=== PATIENT | female | born 1965 | race Caucasian/White ===

== ENCOUNTER 2018-07-31 10:20 | Inpatient (IN) | payer MEDICAID ==
[~2018-07-31] VITALS: Ht 165.1 cm; Wt 66.7 kg
--- NOTE | 2018-07-31 10:20 | NUR ---
Patient BIBA BLS, transferred to bed 6. RN evaluating patient at bedside.
--- NOTE | 2018-07-31 10:22 | NUR ---
Dr. Estrella evaluating patient at bedside.
[2018-07-31 10:23] VITALS: BP 169/93
--- NOTE | 2018-07-31 10:25 | NUR ---
53f biba from [facility] with c/o aloc x 3 days. Per report from friend, pt has been aloc for the past three days. Patient also was dx with bronchitits 3 wks ago. Skin is chapo to touch and pt is tachycardiac. Friend Patient obeys commands, spontaneous eye opening, incomprehible responsive to questions, and moving all extremities spontaneously. PERRLA. No facial/smile asymmetry noted. No head injury or trauma noted. RR are even and tachynpenic. Abd soft and non tender. No emesis noted or reported. NAD. ER md guadarrama made aware of patient's status. Will continue to monitor.
[2018-07-31] MEDS ORDERED: ORE25 PO (10:36)
[2018-07-31] MEDS ORDERED: TOP25 PO (10:36)
[2018-07-31] MEDS ORDERED: LISI-420 PO (10:36)
[2018-07-31] MEDS ORDERED: IBUP-1842 PO (10:36)
[2018-07-31] MEDS ORDERED: BEN50 PO (10:36)
[2018-07-31] MEDS ORDERED: NACL 0.9% 1,000 ML IV SCH (10:41)
[2018-07-31] MEDS ORDERED: cefTRIAXone 1,000 MG in DEXT 5% MINI-BAG PLUS 50 ML IV ONE (10:45)
[2018-07-31] MEDS ORDERED: LORazepam 2 MG/ML VIAL IVP ONE ×2 (10:55→12:50)
--- NOTE | 2018-07-31 11:15 | NUR ---
# 16 FR Urinary catheter inserted utilizing sterile technique. Immediate return of 20 ml yellow cloudy urine noted. Urine sample collected and sent to lab. Pt tolerated procedure well.
--- NOTE | 2018-07-31 11:28 | NUR ---
Patient taken to CT scan via gurney by [employer].
[2018-07-31 11:38] LABS: BASOPHILS % (AUTO) 0.1 % (0.0-2.0); EOSINOPHILS % (AUTO) 0.1 % (0.0-4.0); HEMATOCRIT 33.7 % (36-48); HEMOGLOBIN 11.1 g/dL (12.0-16.0); LYMPHOCYTES # (AUTO) 0.2 K/uL (2.5-16.5); LYMPHOCYTES % (AUTO) 0.8 % (20.5-51.1); MEAN CORPUSCULAR HEMOGLOBIN 30 pg (27-31); MEAN CORPUSCULAR HGB CONC 33 g/dL (33-37); MEAN CORPUSCULAR VOLUME 89.8 fL (80-94); MONOCYTES # (AUTO) 0.5 K/uL (0.8-1.0); MONOCYTES % (AUTO) 1.7 % (1.7-9.3); NEUTROPHILS # (AUTO) 25.4 K/uL (1.8-7.7); NEUTROPHILS % (AUTO) 97.3 % (42.2-75.2); PLATELET COUNT (AUTO) 431 K/uL (140-450); RED BLOOD CELL COUNT(AUTO) 3.75 MIL/uL (4.20-5.40); RED CELL DISTRIBUTION WIDTH 13.8 % (11.6-13.7)
[2018-07-31 11:43] LABS: WHITE BLOOD COUNT (AUTO) 26.2 K/uL (4.8-10.8)
[2018-07-31 11:47] LABS: BARBITURATE, URINE NEG. ng/ml (NEG <=200); BENZODIAZEPINE, URINE NEG. ng/mL (NEG <=200); CANNABINOID, URINE NEG. ng/mL (NEG <=50); COCAINE, URINE NEG. ng/mL (NEG <=300); OPIATE, URINE NEG. ng/mL (NEG <=2000); PHENCYCLIDINE SCREEN,URINE NEG. ng/mL (NEG <=25)
--- NOTE | 2018-07-31 11:50 | NUR ---
pt returned from ct via gurney accompanied by power equipment technology instructor and returned to rm 6
[2018-07-31 11:51] LABS: APPEARANCE,URINE CLOUDY (CLEAR); BILIRUBIN,URINE NEGATIVE (NEGATIVE); BLOOD, URINE 1+ (NEGATIVE); COLOR,URINE YELLOW (YELLOW); LEUKOCYTE ESTERASE ,URINE 1+ (NEGATIVE); NITRITE, URINE NEGATIVE (NEGATIVE); UGLUCOSE NEGATIVE (NEGATIVE)
[2018-07-31 11:54] LABS: RBC,URINE 3-10 (FEW) /HPF (0-5)
--- NOTE | 2018-07-31 12:03 | NUR ---
patient remains agitated; pulling on monitoring cords; attempting get out of bed; er md guadarrama made aware
[2018-07-31] MEDS ORDERED: KETOROLAC 15 MG/ML VIAL IVP ONE (12:05)
[2018-07-31 12:07] LABS: PROTHROMBIN TIME 11.6 secs (10.8-13.4)
[2018-07-31] MEDS ORDERED: KETOROLAC 30 MG/ML VIAL IM ONE (12:10)
[2018-07-31] MEDS ORDERED: cefTRIAXone 1,000 MG VIAL ONE (12:12)
[2018-07-31] MEDS ORDERED: NACL 0.9% 2,000 ML IV SCH (12:24)
[2018-07-31] MEDS ORDERED: ACETAMINOPHEN 650 MG SUPP RC ONE (12:25)
[2018-07-31] MEDS ORDERED: NACL 0.9% 1,000 ML IV ONE (12:25)
[2018-07-31] MEDS ORDERED: LEVOFLOXACIN 500 MG/D5W PREMIX 100 ML IV ONE (12:25)
[2018-07-31] MEDS ORDERED: diphenhydrAMINE 50 MG/ML VIAL IVP ONE (12:35)
[2018-07-31 12:38] LABS: D-DIMER > 5000 ng/ml (0-400)
[2018-07-31] MEDS: NACL 0.9% 1,000 ML IV SCH ×2 (12:38→19:40)
[2018-07-31] MEDS ORDERED: DOCUSATE SODIUM 100 MG GELCAP PO PRN (12:40)
[2018-07-31] MEDS ORDERED: ONDANSETRON 4 MG/2 ML VIAL IM/IVP PRN (12:40)
[2018-07-31] MEDS ORDERED: LORazepam 2 MG/ML VIAL ONE (12:58)
--- NOTE | 2018-07-31 13:00 | NUR ---
patient remains agitated; pulling on monitoring cords; attempting get out of bed; er md guadarrama made aware
--- NOTE | 2018-07-31 13:04 | NUR ---
pulse +2 and cap refill < 3 secs to bl arm. skin warm to touch. will continue to monitor.
[2018-07-31 13:10] LABS: CHOL/HDL RATIO 3.9 (1-4.5); PHOSPHORUS 3.1 mg/dL (2.5-4.9); THYROID STIMULATING HORMONE 0.25 uIU/mL (0.34-3.74)
[2018-07-31] MEDS ORDERED: HALOPERIDOL IM 5 MG/ML VIAL ONE ×2 (13:10→16:28)
--- NOTE | 2018-07-31 13:30 | NUR ---
patient remains agitated; pulling on monitoring cords; attempting get out of bed; er md guadarrama made aware
[2018-07-31] MEDS ORDERED: HALOPERIDOL IM 5 MG/ML VIAL IM ONE (13:35)
[2018-07-31 13:50] LABS: ALBUMIN 3.1 g/dL (3.4-5.0); ANION GAP 24.9 (8-16); ASPARTATE AMINOTRANSFERASE 81 U/L (15-37); CARBON DIOXIDE 18.8 mmol/L (21-32); CHLORIDE 98 mmol/L (98-107); CREATININE 1.8 mg/dL (0.6-1.3); GFR ARICAN-AMERICAN 38 mL/min (>90); GLUCOSE 189 mg/dL (74-106); MAGNESIUM 2.2 mg/dL (1.8-2.4); SODIUM SERUM 139 mmol/L (136-145); UREA NITROGEN, BLOOD 46 mg/dL (7-18)
[2018-07-31] MEDS ORDERED: VANCOMYCIN PER PHARMACY MC PRN (13:50)
--- NOTE | 2018-07-31 13:50 | NUR ---
pt less agitated; awaiting admission bed; will continue to monitor.
[2018-07-31 13:55] LABS: ACETAMINOPHEN < 0.5 ug/ml (10-30); POTASSIUM 2.7 mmol/L (3.5-5.1); SALICYLATE < 2.8 mg/dL (2.8-20.0)
--- NOTE | 2018-07-31 13:55 | NUR ---
ELINOR guadarrama made aware of K=2.6; no new orders given; will continue to monitor.
--- NOTE | 2018-07-31 14:04 | NUR ---
pulse +2 and cap refill < 3 secs to bl arm. skin warm to touch. will continue to monitor.
[2018-07-31 14:17] LABS: URIC ACID 10.4 mg/dL (2.6-7.2)
[2018-07-31] MEDS ORDERED: HEPARIN PER PHARMACY MC PRN (14:20)
[2018-07-31] MEDS ORDERED: hePARIN / DEXT 5% PREMIX 250 ML IV SCH (14:20)
--- NOTE | 2018-07-31 14:20 | NUR ---
pulse +2 and cap refill < 3 secs to bl arm. skin warm to touch. will continue to monitor.
--- NOTE | 2018-07-31 14:30 | NUR ---
Note marcy in EDM - 07/31/18 at 1442 by SRINI Patient will be admitted to care of [facility]. Admited to ICU. Will go to room ICU 5. Belongings list completed. Report to Clarissa REYES. Endorsed to Clarissa REYES.
--- NOTE | 2018-07-31 14:30 | NUR ---
Patient will be admitted to care of [facility]. Admited to ICU. Will go to room ICU 5. Belongings list completed. Report to Clarissa REYES. Endorsed to Clarissa REYES regarding K=2.6, that it was endorsed to Er md guadarrama with no new orders given d/t to acute kidney failure.
--- NOTE | 2018-07-31 14:45 | NUR ---
ADMITTED PATIENT FROM ED PER ELIZABETH. BEDSIDE REPORT RECEIVED FROM KYRA REYES. BILATERAL AC PERIPHERAL IV PATENT AND INTACT. SKIN WARM TO TOUCH WNL, TOENAILS WNL, NO EDEMA, WITH HAIR GROWTH AND +3 BILATERAL PEDAL PULSES. MOANS AND GROANS AT TIMES. ON BILATERAL SOFT WRISTS RESTRAINTS. ON O2 @ 2LPM/NC. PATIENT MADE COMFORTABLE IN BED. CALL LIGHT WITHIN REACH. WILL CONTINUE TO MONITOR PATIENT
[2018-07-31] MEDS ORDERED: VANCOMYCIN 1GM/DEXT 5% PREMIX 200 ML IV SCH (15:00)
[2018-07-31] MEDS ORDERED: POTASSIUM CHLORIDE 40 MEQ, LIDOCAINE MPF 1% - 5 mL VIAL 25 MG in NACL 0.9% 250 ML IV SCH (15:00)
[2018-07-31 16:00] VITALS: BP 149/93
[2018-07-31] MEDS ORDERED: HALOPERIDOL IM 5 MG/ML VIAL IM SCH (16:20)
[2018-07-31] MEDS: ALBUTEROL SULFATE/IPRATROPIU 3 ML SOL IH PRN (16:30)
[2018-07-31] MEDS ORDERED: LORazepam 2 MG/ML VIAL IVP PRN (18:30)
[2018-07-31] MEDS ORDERED: LISINOPRIL 20 MG TAB PO SCH (18:30)
[2018-07-31] MEDS ORDERED: HYDROCHLOROTHIAZIDE 25 MG TAB PO SCH (18:30)
[2018-07-31] MEDS: hePARIN / DEXT 5% PREMIX 250 ML IV SCH (18:49)
--- NOTE | 2018-07-31 19:12 | NUR ---
REPORT GIVEN TO NOC RN FOR CONTINUITY OF CARE. PATIENT IN STABLE CONDITION.
--- NOTE | 2018-07-31 19:18 | NUR ---
ASSUMED CARE OF PT FROM AM SHIFT. PT AO X1. EPISODES OF CONFUSION NOTED. UNABLE TO FOLLOW COMMANDS. ON NON-BEHAVIORAL WRIST RESTRAINTS. ON NC 2LPM. EVEN UNLABORED BREATHING. NPO AT THIS TIME. ABD NON-DISTENDED. IV SITE RIGHT AC LEFT AC 20G. AND RIGHT HAND 22G. ON HEPARIN DRIP [address] ON MONITOR. F/C IN PLACE. CLEAR URINE. BID IN LOWEST POSITION. CALL LIGHT WITHIN REACH. WILL CONTINUE TO MONITOR.
--- NOTE | 2018-07-31 19:43 | NUR ---
PT AGITATED AT THIS TIME. GIVEN ATIVAN IVP. TO HELP RELIEVE AGITATION
[2018-07-31 20:00] VITALS: BP 176/90
--- NOTE | 2018-07-31 20:04 | NUR ---
DR. MURRELL AT BEDSIDE AT THIS TIME. UPDATED ON CURRENT CONDITION.
[2018-07-31 20:59] LABS: ANION GAP 18.6 (8-16); CARBON DIOXIDE 18.9 mmol/L (21-32); CREATININE 1.3 mg/dL (0.6-1.3)
[2018-07-31] MEDS: PIPER/TAZO 3.375GM/D5W PREMIX 50 ML IV SCH (21:00)
[2018-07-31 21:02] LABS: POTASSIUM 2.5 mmol/L (3.5-5.1)
[2018-07-31] MEDS ORDERED: POTASSIUM CHLORIDE 40 MEQ, LIDOCAINE MPF 1% - 5 mL VIAL 25 MG in NACL 0.9% 250 ML IV ONE (21:15)
--- NOTE | 2018-07-31 21:19 | NUR ---
LAB WITH CRITICAL RESULTS OF K 2.5 [address]4. [address] ROSEN MADE AWARE.
--- NOTE | 2018-07-31 21:26 | NUR ---
LAB RESULTS FOR BLOOD CULTURE GRAM POSITIVE COCCI GRAMS AND CHAINS. DR. ROSEN MADE AWARE.
[2018-07-31] MEDS ORDERED: TOPIRAMATE 25 MG TAB ONE (21:30)
[2018-07-31] MEDS: TOPIRAMATE 25 MG TAB PO SCH (21:52)
--- NOTE | 2018-07-31 22:25 | NUR ---
PATIENT STARTED 40MEQ KCL AT THIS TIME.
[2018-07-31] MEDS ORDERED: diphenhydrAMINE 50 MG/ML VIAL IVP SCH (22:30)
[2018-07-31] MEDS ORDERED: KCL 20 MEQ/WATER INJ PREMIX 200 ML IV SCH (22:30)
[2018-08-01] VITALS (81 sets, daily range): BP systolic 101–253; BP diastolic 13–112
[2018-08-01] MEDS: NACL 0.9% 1,000 ML IV SCH (01:02)
[2018-08-01] MEDS ORDERED: diphenhydrAMINE 50 MG/ML VIAL IVP PRN (01:05)
--- NOTE | 2018-08-01 01:26 | NUR ---
DR. ROSEN NOTIFIED OF PT RUNNING V-TACH ON MONITOR. WILL CONTINUE TO FOLLOW UP ADDITIONAL ORDERS.
--- NOTE | 2018-08-01 01:30 | NUR ---
DR ROSEN ORDER EKG, BUT HR IS OVER 148, PT MOVING NON STOP , UNABLE TO OBTAIN EKG. HE WAS NOTIFIED AND HOLD THE ORDER UNTIL THE PT IS ABLE TO STAY STEEL/.
[2018-08-01 01:34] LABS: PROTHROMBIN TIME 14.2 secs (10.8-13.4)
--- NOTE | 2018-08-01 02:01 | NUR ---
RT AT BEDSIDE TO PERFORM EKG. UNABLE TO PERFORM EKG D/T PT CONDITION. PT TOO AGITATED AT THIS TIME.
[2018-08-01] MEDS: LORazepam 2 MG/ML VIAL IVP PRN ×2 (02:13→10:06)
[2018-08-01] MEDS ORDERED: hydrALAZINE 20 MG/ML VIAL IVP PRN ×2 (02:45→04:20)
[2018-08-01] MEDS ORDERED: NACL 0.9% 500 ML IV ONE (02:45)
[2018-08-01] MEDS ORDERED: KCL 20 MEQ/WATER INJ PREMIX 200 ML IV SCH ×2 (03:00→20:00)
--- NOTE | 2018-08-01 03:40 | NUR ---
RT AT BEDSIDE AT THIS TIME WITH DR. ROSEN AND ER MD FOR INTUBATION. ADMINISTERED ROCURONIUM 50MG AND ETOMIDATE 20MG. PT BAGGED AT THIS TIME HR 125 RR 32 BP 118/112 O2 96. ENDOTRACHEAL INTUBATION PERFORMED 7.5 AND 25 AT LIP. VENT SETTINGS FIO2 12 VT 500 PEEP5.
[2018-08-01] MEDS ORDERED: PROPOFOL 1000 MG/100 ML PREMIX 100 ML IV ONE (03:48)
--- NOTE | 2018-08-01 03:50 | NUR ---
STARTED ON PROPOFOL DRIP 5MCG/KG/MIN
--- NOTE | 2018-08-01 03:50 | NUR ---
X-RAY AT BEDSIDE AT THIS TIME
--- NOTE | 2018-08-01 04:00 | NUR ---
AT [address] DR ROSEN CALLED THE ER DR PINEDA AND INTUBATED THE PT. PT WAS INTUBATED WITH SIZE 7.5, AT 25CM AT [facility]. X RAY WAS DONE, VENT SETTINGS AC 12, VT 500, PEEP 5, 50% FIO2. SPUTUM WAS COLLECTED AND SEND TO THE LAB.VENT CK WAS DONE, HR STILL HIGH 132, BP IS 253/108. PT IS ON PROPOFOL AT THIS TIME.
--- NOTE | 2018-08-01 04:10 | NUR ---
LEFT MESSAGE TO VAHE PAYNE REGARDING INTUBATION AT THIS TIME
[2018-08-01] MEDS: hydrALAZINE 20 MG/ML VIAL IVP SCH (04:30)
[2018-08-01] MEDS: PROPOFOL 1000 MG/100 ML PREMIX 100 ML IV PRN ×3 (04:44→20:05)
[2018-08-01] MEDS: PIPER/TAZO 3.375GM/D5W PREMIX 50 ML IV SCH ×2 (05:01→12:46)
[2018-08-01 05:37] LABS: HEMATOCRIT 28.9 % (36-48); HEMOGLOBIN 9.2 g/dL (12.0-16.0); MEAN CORPUSCULAR HEMOGLOBIN 29 pg (27-31); MEAN CORPUSCULAR HGB CONC 32 g/dL (33-37); MEAN CORPUSCULAR VOLUME 91.1 fL (80-94); PLATELET COUNT (AUTO) 228 K/uL (140-450); RED BLOOD CELL COUNT(AUTO) 3.17 MIL/uL (4.20-5.40); RED CELL DISTRIBUTION WIDTH 13.7 % (11.6-13.7)
[2018-08-01 05:49] LABS: ANION GAP 18.1 (8-16); CARBON DIOXIDE 19.6 mmol/L (21-32); CREATININE 1.3 mg/dL (0.6-1.3); POTASSIUM 3.7 mmol/L (3.5-5.1)
--- NOTE | 2018-08-01 05:55 | NUR ---
DR. BARNHART AT BEDSIDE AT THIS TIME TO EVALUATE PATIENT.
[2018-08-01 06:26] LABS: WHITE BLOOD COUNT (AUTO) 37.6 K/uL (4.8-10.8)
[2018-08-01 06:27] LABS: LYMPHOCYTES % (MANUAL) 3 % (20-46); MONOCYTES % (MANUAL) 2 % (5-12)
--- NOTE | 2018-08-01 06:53 | NUR ---
CALLED SEEMA RAMOS [phone] ANGIO W/WO CONTRAST. NO ANSWER. WILL ENDORSE TO INCOMING SHIFT.
--- NOTE | 2018-08-01 07:24 | NUR ---
ENDORSED CARE TO INCOMING SHIFT FOR CONTINUITY OF CARE.
--- NOTE | 2018-08-01 07:30 | NUR ---
RECEIVED PT FROM PM NURSE, PT SEDATED WITH PROPOFOL 10 MCG/KG/MIN, RASS -2. ETT TO VENT WITH FIO2= 50 %, TV 500, PEEP 5 , NO S/S OF RESPIRATORY DISTRESS NOTED. PT HAS IV TO L, R FA AND L WRIST, RUNNING HEPARIN AT 1250 UNITS/ HR. SITES INTACT AND PATENT. SKIN INTACT, SAFETY MEASURES IN PLACE, WILL CONTINUE TO MONITOR. Addendum: 08/02/18 at 0704 by Dariela Estrada RN THE DRY WEIGHT USED FOR PROPOFOL TITRATION IS 60 KG .
--- NOTE | 2018-08-01 08:00 | NUR ---
ORAL CARE AND GALA CARE GIVEN. TURNED AND REPOSITIONED PT.
--- NOTE | 2018-08-01 08:15 | NUR ---
RECEIVED PATIENT ON A VENT. SETTINGS AC/VC 500 RATE 12 PEEP 5 FIO2 50%. PATIENT IS INTUBATED WITH AN ET TUBE SIZE 7.0 SECURED AT 25CM AT LIP WITH AN ANCHORFAST AT ORAL RIGHT. B/S: COARSE CLEAR. DID NOT SUCTION THE PATIENT. OBSERVED THE LIP AND SAW NO SKIN BREAKDOWN OR REDNESS. NO TREATMENT GIVEN. ALARMS ON AND VERIFIED. VENT BRAKES ARE ON. AMBU BAG AT BEDSIDE.
--- NOTE | 2018-08-01 08:45 | NUR ---
NG TUBE INSERTED TO RIGHT NARES, PLACEMENT CHECKED WITH CHARGE NURSE
[2018-08-01] MEDS: LACTOBACILLUS RHAMNOSUS GG 1 EACH CAP PO SCH (08:50)
[2018-08-01] MEDS: HYDROCHLOROTHIAZIDE 25 MG TAB PO SCH (08:50)
[2018-08-01] MEDS: LISINOPRIL 20 MG TAB PO SCH (08:50)
[2018-08-01] MEDS: VANCOMYCIN 1GM/DEXT 5% PREMIX 200 ML IV SCH ×2 (08:51→20:49)
[2018-08-01 09:06] LABS: PROTHROMBIN TIME 13.9 secs (10.8-13.4)
--- NOTE | 2018-08-01 09:19 | NUR ---
PATIENT HAS BEEN SCREENED AND CATEGORIZED HIGH NUTRITION RISK. PATIENT WILL BE SEEN WITHIN 1-2 DAYS OF ADMISSION. 08/01/1808/20NEYMAR V[address]Z RD
[2018-08-01] MEDS: DEXT 5% / NACL 0.9% 500 ML IV SCH ×3 (09:32→22:49)
[2018-08-01] MEDS ORDERED: PANTOPRAZOLE 40 MG INJ VIAL IVP SCH (09:41)
--- NOTE | 2018-08-01 13:54 | NUR ---
08/01/18 RD INITIAL ASSESSMENT COMPLETED PLEASE REFER TO NUTRITION ASSESSMENT UNDER CARE ACTIVITY FOR ESTIMATED NUTRITIONAL NEEDS. 1. CONTINUE NPO MEDICALLY APPROPRIATE 2. WHEN MEDICALLY APPROPRIATE CONSIDER VITAL AF AT 65 ML/HR VIA NGT - THIS WILL PROVIDE 1560 ML TOTAL VOLUME, 1872 KCAL, 117 GM PROTEIN TO MEET 100% OF PT ESTIMATED KCAL AND PROTEIN NEEDS 3. IF PT IS SUCCESSFULLY EXTUBATED CONSIDER SLOWLY ADVANCING DIET FROM CLEAR LIQUIDS TO CARDIAC DIET. 3. RD TO FOLLOW-UP 2-3 DAYS, HIGH RISK NEYMAR V[address]Z RD
[2018-08-01] MEDS: hePARIN / DEXT 5% PREMIX 250 ML IV SCH (15:14)
--- NOTE | 2018-08-01 15:53 | NUR ---
TOOK PT TO CT AT 1525, ACCOMPANIED WITH 2 RNS . RT AND TECH. CAME BACK AT 1545 WITHOUT ACCIDENT.
[2018-08-01] MEDS ORDERED: SODIUM FERRIC GLUCONATE 125 MG in NACL 0.9% 100 ML IV SCH (16:00)
--- NOTE | 2018-08-01 16:20 | NUR ---
Waste Hand Note: I called and spoke with estimator and drafter supervisor from case management department at [facility], Isabelle , I inquired if she knew if patient had any family members. She stated according to their records patient doesn't have any family listed and she will make attempts to find out if patient has family and call us back if she is able to find any information, charge nurse Nataliia made aware. I provided Isabelle with nurses' station phone number.
[2018-08-01] MEDS: fentaNYL 1 MG in NACL 0.9% 80 ML IV PRN (16:47)
--- NOTE | 2018-08-01 18:04 | NUR ---
NOTIFIED DR. THOMAS PT HR 140-150S, V-TACH IN AND OUT.
[2018-08-01] MEDS ORDERED: DILTIAZEM 25 MG/5 ML VIAL IVP SCH (18:15)
[2018-08-01] MEDS ORDERED: DEXAMETHASONE 4 MG/ML VIAL IVP SCH (19:00)
--- NOTE | 2018-08-01 19:05 | NUR ---
RECEIVED REPORT FROM AM SHIFT. PT INTUBATED. RASS -3. MODERATELY SEDATED. LUNG SOUNDS CLEAR BILATERALLY. TACHYPNEIC BREATHING. VENT SETTINGS ACVC FIO2 50 VT 500 RATE 12 PEEP 5. SINUS TACH ON MONITOR. NO EDEMA NOTED. NGT IN PLACE. AUSCULTATED AND FLUSHED. BOWEL SOUNDS ACTIVE X4 QUADRANTS. FC IN PLACE. BLADDER NONDISTENDED. IV SITES R WRIST 22G. PATENT INTACT. L WRIST 20G PATENT INTACT FENTANYL 31MCG/KG/MIN LFA 20G HEPARIN @ 1350 UNITS/HR. PROPOFOL 50MCG/KG/MIN. SKIN INTACT. BED IN LOWEST POSITION. SIDE RAILS UP X4. WILL CONTINUE TO MONITOR. Addendum: 08/02/18 at 0547 by Rik Allen RN PT DRY WEIGHT NOTED 60KG.
--- NOTE | 2018-08-01 19:10 | NUR ---
CALLED RACHEL STEPHENSON FOR TELEPHONE CONSENT REGARDING CENTRAL LINE PLACEMENT. 2 NURSE WITNESS. NAUMKEAG OPERATOR AGREES TO CONSENT.
--- NOTE | 2018-08-01 19:19 | NUR ---
RECEIVED CRITICAL LAB RESULTS OF K 2.8. DR. THOMAS MADE AWARE. NEW ORDERS FOR 40MEQ KCL ORDERED AT THIS TIME.
--- NOTE | 2018-08-01 19:30 | NUR ---
DR. THOMAS AT BEDSIDE WITH MUSIC BOX MECHANIC AT BEDSIDE TO PERFORM CENTRAL LINE PLACEMENT TO RIGHT IJ. STERILE TECHNIQUE OBSERVED. TIME OUT CALLED. INSERTION SUCCESSFUL.
[2018-08-01 19:31] LABS: HEMATOCRIT 31.1 % (36-48); MEAN CORPUSCULAR HEMOGLOBIN 29 pg (27-31); MEAN CORPUSCULAR HGB CONC 32 g/dL (33-37); MEAN CORPUSCULAR VOLUME 89.3 fL (80-94); PLATELET COUNT (AUTO) 244 K/uL (140-450); RED BLOOD CELL COUNT(AUTO) 3.48 MIL/uL (4.20-5.40); RED CELL DISTRIBUTION WIDTH 14.3 % (11.6-13.7); WHITE BLOOD COUNT (AUTO) 26.7 K/uL (4.8-10.8)
[2018-08-01 19:43] LABS: ANION GAP 19.3 (8-16); CARBON DIOXIDE 16.5 mmol/L (21-32); CREATININE 1.2 mg/dL (0.6-1.3)
--- NOTE | 2018-08-01 19:44 | NUR ---
PATIENT WAS RECEIVED ON DOCUMENTED SETTINGS: AC, 12, 500, +5, 30%. VITALS: 96, RATE 36, PULSE 133, BREATH SOUNDS COARSE. SXNED FOR SCANT AMOUNT OF CREAMY THIN SECRETIONS. ALARMS ON AND AUDIBLE. VENT PLUGGED INTO RED OUTLET. ET TUBE PATENT AND SECURE. AMBU BAG AT BEDSIDE. PT TACHYPNEIC BUT NO SOB OR DISTRESS OTHERWISE NOTED. DR. THOMAS AT BEDSIDE WITH NURSE CELESTINO.
[2018-08-01 19:46] LABS: PHOSPHORUS 1.8 mg/dL (2.5-4.9)
[2018-08-01 19:50] LABS: POTASSIUM 2.8 mmol/L (3.5-5.1)
[2018-08-01 19:56] LABS: BASOPHILS % (MANUAL) 0 % (0-2); EOSINOPHILS % (MANUAL) 0 % (0-4); LYMPHOCYTES % (MANUAL) 10 % (20-46); MONOCYTES % (MANUAL) 4 % (5-12)
[2018-08-01] MEDS ORDERED: KCL 20 MEQ/WATER INJ PREMIX 200 ML IV ONE ×2 (19:59→20:05)
--- NOTE | 2018-08-01 20:15 | NUR ---
XRAY AT BEDSIDE AT THIS TIME. DR. THOMAS AWARE OF CENTRAL LINE PLACEMENT. OK TO USE.
--- NOTE | 2018-08-01 20:45 | NUR ---
EKG AT BEDSIDE AT THIS TIME. RECEIVED RESULT OF SINUS TACHY. DR. THOMAS AT BEDSIDE AT THIS TIME. RESULTS CALLED TO DR. GRAYSON.
[2018-08-01] MEDS: TOPIRAMATE 25 MG TAB PO SCH (20:47)
[2018-08-01] MEDS: FERROUS SULFATE 300 MG/5 ML UDC GT SCH (20:47)
[2018-08-01] MEDS: cefTRIAXone 2,000 MG in DEXTROSE 5% 100 ML IV SCH (21:00)
[2018-08-01] MEDS: DEXT 5% /NACL 0.9% 1,000 ML IV SCH (22:50)
--- NOTE | 2018-08-01 23:09 | NUR ---
RECEIVED REPORT FROM RN, SABIHA, FOR CONTINUITY OF CARE. PT AFEBRILE AND TACHYCARDIC AT THIS TIME. ETT TO VENT. RECEIVED PT ON PROPOFOL DRIP, HEPARIN DRIP, AND FENTANYL DRIP. WILSON CATHETER IN PLACE, DRAINING CLEAR AND YELLOW URINE. FLACC 0. RASS -3. NGT IN PLACE. PT HAS RIGHT IJ CENTRAL LINE, C/D/I. MULTIPLE PERIPHERAL IV ACCESS IN PLACE WELL. WILL CONTINUE TO MONITOR PT. Addendum: 08/01/18 at 2336 by Kavya Jerome RN WT OF 60KG IS USED FOR THE DRIPS (PROPOFOL, HEPARIN, AND FENTANYL).
--- NOTE | 2018-08-01 23:17 | NUR ---
ENDORSED CARE TO NIGHT RN FOR CONTINUITY OF CARE.
[2018-08-02] VITALS (100 sets, daily range): BP systolic 102–156; BP diastolic 58–109
--- NOTE | 2018-08-02 00:39 | NUR ---
ST ON MONITOR. NO CHANGE IN PT CONDITION. RESPIRATIONS ARE EVEN AND UNLABORED. RASS -3. FLACC 0. PT AFEBRILE. ORAL CARE PROVIDED. PT TURNED AND REPOSITIONED
[2018-08-02] MEDS: PROPOFOL 1000 MG/100 ML PREMIX 100 ML IV PRN ×5 (01:36→22:25)
--- NOTE | 2018-08-02 02:15 | NUR ---
RASS -3. PT STILL ON PROPOFOL DRIP FOR SEDATION. FENTANYL DRIP RUNNING WELL. FLACC 0. PT STILL ST ON MONITOR. RESPIRATIONS HOWEVER ARE EVEN AND UNLABORED. BP WNL. NGT IN PLACE AND SECURED. PT TURNED AND REPOSITIONED. WILSON CATHETER STILL DRAINING WELL.
--- NOTE | 2018-08-02 04:30 | NUR ---
PT TURNED AND REPOSITIONED. NO CHANGE IN CONDITION CURRENTLY. VS STABLE. RASS -3. FLACC 0. PM CARE GIVEN TO PT AND WILSON CATHETER CARE GIVEN. VAP ORAL CARE PROVIDED.
--- NOTE | 2018-08-02 06:23 | NUR ---
DR. ROSEN AT BEDSIDE, ACCORDING TO HIM HEPARIN IS TO BE DISCONTINUED.
[2018-08-02] MEDS: DEXT 5% /NACL 0.9% 1,000 ML IV SCH (06:45)
--- NOTE | 2018-08-02 07:01 | NUR ---
RECEIVED PT ON CARESCAPE ON DOCUMENTED SETTINGS, ALARMS ARE ON AND AUDIBLE PTS ET TUBE 7.5 IS SECURE 23 CM TEETH ANCHOR FAST IN PLACE BS CLEAR PT IN HF QUIET BMV HOB NO SOB NOTED VENT PLUGGED INTO RED OUTLET
[2018-08-02 07:07] LABS: BASOPHILS # (AUTO) 0.1 K/uL (0.00-0.22); BASOPHILS % (AUTO) 0.3 % (0.0-2.0); EOSINOPHILS % (AUTO) 0.1 % (0.0-4.0); HEMATOCRIT 27.7 % (36-48); LYMPHOCYTES # (AUTO) 0.4 K/uL (2.5-16.5); LYMPHOCYTES % (AUTO) 2.1 % (20.5-51.1); MEAN CORPUSCULAR HEMOGLOBIN 29 pg (27-31); MEAN CORPUSCULAR HGB CONC 33 g/dL (33-37); MEAN CORPUSCULAR VOLUME 89.5 fL (80-94); MONOCYTES # (AUTO) 0.6 K/uL (0.8-1.0); MONOCYTES % (AUTO) 3.2 % (1.7-9.3); NEUTROPHILS # (AUTO) 17.9 K/uL (1.8-7.7); NEUTROPHILS % (AUTO) 94.3 % (42.2-75.2); PLATELET COUNT (AUTO) 227 K/uL (140-450); RED BLOOD CELL COUNT(AUTO) 3.09 MIL/uL (4.20-5.40); RED CELL DISTRIBUTION WIDTH 14.5 % (11.6-13.7)
--- NOTE | 2018-08-02 07:20 | NUR ---
REPORT RECEIVED FROM [facility] RN FOR CONTINUITY OF CARE. PATIENT IS SEDATED WITH PROPOFOL AND FENTANYL DRIP, RASS -3. DRY WEIGHT 60 KG. RIJ CENTRAL LINE, TLC PATENT AND INTACT. FC IN PLACE TO LIGHT YULY URINE IN MODERATE AMOUNT. ON ETT TO VENT, FIO2 50%, AC 12, TV 500 AND PEEP OF 5. SKIN WARM TO TOUCH WNL, TOENAILS WNL, NO EDEMA, WITH HAIR GROWTH AND +2 BILATERAL PEDAL PULSES. BILATERAL LOWER EXTREMITIES SCD IN PLACE. SINUS TACH ON MONITOR. VS STABLE. NOT IN ANY DISTRESS. CALL LIGHT WITHIN REACH. BED AT LOWEST POSSIBLE POSITION. WILL CONTINUE TO MONITOR PATIENT.
[2018-08-02 07:23] LABS: ANION GAP 18.2 (8-16); CARBON DIOXIDE 18.1 mmol/L (21-32); CREATININE 1.2 mg/dL (0.6-1.3); POTASSIUM 3.3 mmol/L (3.5-5.1)
--- NOTE | 2018-08-02 07:28 | NUR ---
REPORT GIVEN TO MORNING RN FOR CONTINUITY OF CARE. VS STABLE AT THIS TIME. ALL SAFETY PRECAUTIONS ARE IN PLACE.
--- NOTE | 2018-08-02 07:50 | NUR ---
DR UMANZOR AND GROUP ROUNDING, WILL FOLLOW UP WITH ORDERS.
[2018-08-02] MEDS: FERROUS SULFATE 300 MG/5 ML UDC GT SCH ×2 (08:35→20:29)
[2018-08-02] MEDS: cefTRIAXone 2,000 MG in DEXTROSE 5% 100 ML IV SCH ×2 (08:36→20:29)
[2018-08-02] MEDS: PANTOPRAZOLE 40 MG INJ VIAL IVP SCH (08:36)
[2018-08-02] MEDS: LACTOBACILLUS RHAMNOSUS GG 1 EACH CAP PO SCH (08:36)
[2018-08-02] MEDS: HYDROCHLOROTHIAZIDE 25 MG TAB PO SCH (08:36)
[2018-08-02] MEDS: VANCOMYCIN 1GM/DEXT 5% PREMIX 200 ML IV SCH (08:37)
[2018-08-02] MEDS: LISINOPRIL 20 MG TAB PO SCH (08:37)
[2018-08-02 09:09] LABS: FOLIC ACID 13.3 ng/mL (>3.0); HEPATITIS A ANTIBODY IGM Negative (Negative); HEPATITIS B SURFACE ANTIBODY Reactive (.); HEPATITIS B SURFACE ANTIGEN Negative (Negative)
[2018-08-02] MEDS ORDERED: DEXTROSE 50% 50 ML SYR IVP PRN (09:15)
--- NOTE | 2018-08-02 09:20 | NUR ---
DR. HURT IN SEEN AND EXAMINED PATIENT. WITH RECOMMENDATIONS TO REMOVE PICC LINE IF OK WITH DR. SINHA. WILL FOLLOW UP. Addendum: 08/02/18 at 1839 by Clarissa Encinas RN WRONG ENTRY
[2018-08-02] MEDS ORDERED: SODIUM PHOS / POTASSIUM PHOS 1 PKT PDR NG SCH (09:30)
[2018-08-02] MEDS ORDERED: KCL 20 MEQ/WATER INJ PREMIX 200 ML IV SCH (10:00)
[2018-08-02] MEDS: VANCOMYCIN 750 MG in DEXTROSE 5% 250 ML IV SCH ×2 (10:59→23:47)
[2018-08-02] MEDS: BLOOD GLUCOSE MONITORING 1 DEV DEV FS SCH ×3 (12:08→20:30)
--- NOTE | 2018-08-02 13:30 | NUR ---
PATIENT OFF THE UNIT TO OR FOR LUMBAR PUNCTURE, ACCOMPANIED BY OR STAFF, RADIOLOGY AND RT.
--- NOTE | 2018-08-02 13:40 | NUR ---
PT TAKEN TO OR BAGGED WITH 100 O2 RETURNED TO ICU 5 1500 Addendum: 08/02/18 at 1511 by Lorna Grande RT LUMBAR PUNCTURE
[2018-08-02] MEDS ORDERED: LIDOCAINE 1% 50 ML ONE (13:51)
--- NOTE | 2018-08-02 15:00 | NUR ---
PATIENT CAME BACK FROM OR. PER SUPERVISOR BUILDING MAINTENANCE'S, UNABLE TO TAKE OUT ANY SPINAL FLUID. PATIENT TOLERATED PROCEDURE WELL. MADE COMFORTABLE IN BED. RASS-3.
--- NOTE | 2018-08-02 16:30 | NUR ---
DR. SINHA IN SEEN AND EXAMINED PATIENT. CLARIFIED IF OK TO REMOVE PICC LINE PER DR HURT. STATED OK TO CHANGE REMOVE PICC LINE. Addendum: 08/02/18 at 1839 by Clarissa Encinas RN [facility] PEDERSON
[2018-08-02] MEDS: DEXT 5% / NACL 0.45% 1,000 ML IV SCH (16:48)
--- NOTE | 2018-08-02 17:28 | NUR ---
REPORT RECEIVED FROM [facility] RN FOR CONTINUITY OF CARE. PATIENT IS SEDATED WITH PROPOFOL AND FENTANYL DRIP, RASS -3. DRY WEIGHT 60 KG. RIJ CENTRAL LINE, TLC PATENT AND INTACT. FC IN PLACE TO LIGHT YULY URINE IN MODERATE AMOUNT. ON ETT TO VENT, FIO2 50%, AC 12, TV 500 AND PEEP OF 5. SKIN WARM TO TOUCH WNL, TOENAILS WNL, NO EDEMA, WITH HAIR GROWTH AND +2 BILATERAL PEDAL PULSES. BILATERAL LOWER EXTREMITIES SCD IN PLACE. SINUS TACH ON MONITOR. VS STABLE. NOT IN ANY DISTRESS. CALL LIGHT WITHIN REACH. BED AT LOWEST POSSIBLE POSITION. WILL CONTINUE TO MONITOR PATIENT.
--- NOTE | 2018-08-02 19:20 | NUR ---
REPORT GIVEN TO NOC RN FOR CONTINUITY OF CARE. PATIENT IN STABLE CONDITION.
--- NOTE | 2018-08-02 19:30 | NUR ---
RECEIVED REPORT FROM MORNING RN FOR CONTINUITY OF CARE. VS STABLE AT THIS TIME. FLACC 0. RASS -3. PT AFEBRILE. ETT TO VENT WITH SETTINGS: AC12, FIO2 30%, TV 500, AND PEEP 5. LUNG SOUNDS CLEAR. RESPIRATIONS ARE EVEN AND UNLABORED. S1+S2 HEARD. SR ON MONITOR. PULSES ARE PALPABLE IN ALL EXTREMITIES. ABDOMEN ROUND, SOFT AND NONDISTENDED. NGT IN PLACE. PLACEMENT CHECKED. WILSON CATHETER IN PLACE. DRAINING CLEAR AND YELLOW URINE. SCD IN PLACE. PT HAS RIGHT WRIST PERIPHERAL IV ACCESS 22G AND LEFT FOREARM 20G PERIPHERAL IV ACCESS. PT HAS RIGHT IJ CENTRAL LINE IN PLACE. RECEIVED PT ON FENTANYL AT 31MCG, PROPOFOL 50MCG, AND D5 0.45% NS AT 100ML/HR. DRY WEIGHT BEING USED FOR PROPOFOL IS 60KG. HOB AT 30 DEGREES. BED AT LOWEST POSSIBLE POSITION. ALL SAFETY PRECAUTIONS ARE IN PLACE.
[2018-08-02] MEDS: TOPIRAMATE 25 MG TAB PO SCH (20:30)
[2018-08-02] MEDS: INSULIN LISPRO SLIDING SCALE 100 UNITS/ML VIAL SUBQ PRN (20:31)
--- NOTE | 2018-08-02 22:20 | NUR ---
VS STABLE AT THIS TIME. SR ON MONITOR. NO CHANGE IN PT'S CONDITION. RASS -3. RESPIRATIONS ARE EVEN AND UNLABORED. ALL IV ACCESS ARE PATENT, INTACT, AND ASYMPTOMATIC.
[2018-08-03] VITALS (105 sets, daily range): BP systolic 107–176; BP diastolic 67–105
--- NOTE | 2018-08-03 00:25 | NUR ---
ORAL CARE PROVIDED TO PT. TURNED AND REPOSITIONED WELL. PT TOLERATED BEING REPOSITIONED WELL. PT ABLE TO OPEN EYES. RASS -3. NO CHANGE IN CONDITION. ALL SAFETY PRECAUTION IN PLACE.
[2018-08-03] MEDS: DEXT 5% / NACL 0.45% 1,000 ML IV SCH ×3 (01:00→18:05)
[2018-08-03] MEDS: fentaNYL 1 MG in NACL 0.9% 80 ML IV PRN (01:40)
[2018-08-03] MEDS: PROPOFOL 1000 MG/100 ML PREMIX 100 ML IV PRN ×5 (02:00→21:05)
--- NOTE | 2018-08-03 02:05 | NUR ---
NO CHANGE IN PT'S CONDITION AT THIS TIME. RESPIRATIONS ARE EVEN AND UNLABORED. SR ON MONITOR. RASS -3. PT ABLE TO OPEN EYES WHEN TURNED AND REPOSITIONED. ORAL CARE PROVIDED. NO BM NOTED. WILSON CATHETER STILL DRAINING CLEAR AND YELLOW URINE.
--- NOTE | 2018-08-03 04:35 | NUR ---
PM CARE PROVIDED TO PT. LINENS CHANGED. NO BM NOTED. PT TOLERATED BEING TURNED FAIRLY. PT COUGHS INTERMITTENTLY, BUT NO SECRETION ASPIRATED WHEN SUCTIONED. WILSON CATHETER CARE AND VAP ORAL CARE PROVIDED. ALL SAFETY PRECAUTIONS ARE IN PLACE. KEPT BED AT THE LOWEST POSSIBLE POSITION. WILL CONTINUE TO MONITOR PT.
--- NOTE | 2018-08-03 06:08 | NUR ---
SR ON MONITOR. NO CHANGE IN PT CONDITION. VS STABLE AT THIS TIME. RESPIRATIONS ARE EVEN AND UNLABORED. ALL IV ACCESS ARE PATENT, INTACT, AND ASYMPTOMATIC.
[2018-08-03 06:25] LABS: BASOPHILS % (AUTO) 0.1 % (0.0-2.0); HEMATOCRIT 24.6 % (36-48); HEMOGLOBIN 8.1 g/dL (12.0-16.0); LYMPHOCYTES # (AUTO) 1.3 K/uL (2.5-16.5); LYMPHOCYTES % (AUTO) 6.8 % (20.5-51.1); MEAN CORPUSCULAR HEMOGLOBIN 30 pg (27-31); MEAN CORPUSCULAR HGB CONC 33 g/dL (33-37); MEAN CORPUSCULAR VOLUME 89.5 fL (80-94); MONOCYTES % (AUTO) 5.1 % (1.7-9.3); NEUTROPHILS # (AUTO) 17.2 K/uL (1.8-7.7); PLATELET COUNT (AUTO) 190 K/uL (140-450); RED BLOOD CELL COUNT(AUTO) 2.74 MIL/uL (4.20-5.40); RED CELL DISTRIBUTION WIDTH 14.3 % (11.6-13.7); WHITE BLOOD COUNT (AUTO) 19.6 K/uL (4.8-10.8)
--- NOTE | 2018-08-03 06:30 | NUR ---
DR. ROSEN AT BEDSIDE TO EXAMINE PT, WILL FOLLOW-UP WITH ANY NEW ORDERS
[2018-08-03] MEDS: BLOOD GLUCOSE MONITORING 1 DEV DEV FS SCH ×4 (06:56→21:02)
--- NOTE | 2018-08-03 07:05 | NUR ---
RECEIVED PT ON DOCUMENTED SETTINGS , ALARMS ARE ON AND AUDIBLE, PTS ET TUBE SIZE 7.5 IS SECURE 23 CM TEETH ANCHOR FAST IN PLACE BS CLEAR PT IN HF QUIET BNV HOB VENT PLUGGED INTO RED OUTLET NO SOB NOTED
[2018-08-03 07:06] LABS: MAGNESIUM 1.6 mg/dL (1.8-2.4); PHOSPHORUS 2.2 mg/dL (2.5-4.9)
--- NOTE | 2018-08-03 07:15 | NUR ---
REPORT GIVEN TO MORNING RN FOR CONTINUITY OF CARE. VS STABLE AT THIS TIME. PT IN STABLE CONDITION AT THIS TIME. ENDORSED THE BG AND INSULIN COVERAGE NEEDED.
--- NOTE | 2018-08-03 07:16 | NUR ---
RECEIVED REPORT FROM NIGHT RN PATIENT IN BED ORALLY INTUBATED HOOKED TO VENTILATOR AC 12 FIO2 30% TIDAL VOLUME 500 PEEP 5 SO2 98%, PATIENT OPENS EYES TO SHAKING, WITHDRAWS TO PAIN, ON FENTANYL 31 MCG/HR., PROPOFOL 50 MCG/KG/MIN.-WEIGHT 60 KGS. SET IN THE PUMP. WITH RIGHT SIDED NARES NGT CLAMPED-PATENT ON AUSCULTATION, ASPIRATED 10 ML BILOUS OUTPUT, ABDOMEN SOFT NON TENDER, WITH WILSON CATHETER DRAINING CLEAR YELLOW URINE, SKIN IS INTACT, RIGHT I.J. TRIPLE LUMEN CENTRAL LINE-ALL LUMENS PATENT AND D5 HALF NORMAL SALINE 100 ML/HR. INFUSING. PERIPHERAL LINES GAUGE 20X2 AT LEFT FOREARM, GAUGE 22 AT RIGHT FOREARM SITE/DRESSING CLEAN ASYMPTOMATIC
[2018-08-03 07:30] LABS: ANION GAP 15.3 (8-16); CARBON DIOXIDE 20.9 mmol/L (21-32); CREATININE 0.9 mg/dL (0.6-1.3); POTASSIUM 3.2 mmol/L (3.5-5.1)
--- NOTE | 2018-08-03 08:15 | NUR ---
P.T. NOTES UNABLE TO DO P.T. EVAL DUE TO PATIENT IS CURRENTLY INTUBATED. PLAN: WE'LL D/C P.T. EVAL ORDER FOR NOW AND RESUME WHEN PATIENT IS MEDICALLY STABLE WITH NEW M.D. ORDER TO RESUME. CHARGE NURSE ARSALAN WAS MADE AWARE.
[2018-08-03] MEDS ORDERED: KCL 20 MEQ/WATER INJ PREMIX 200 ML IV SCH (09:00)
[2018-08-03] MEDS ORDERED: MAG SULF 2000 MG/WATER PREMIX 50 ML IV SCH (09:00)
[2018-08-03] MEDS ORDERED: SODIUM PHOS / POTASSIUM PHOS 1 PKT PDR PO SCH (09:00)
[2018-08-03] MEDS: HYDROCHLOROTHIAZIDE 25 MG TAB PO SCH (09:04)
[2018-08-03] MEDS: PANTOPRAZOLE 40 MG INJ VIAL IVP SCH (09:04)
[2018-08-03] MEDS: FERROUS SULFATE 300 MG/5 ML UDC GT SCH ×2 (09:04→20:44)
[2018-08-03] MEDS: LACTOBACILLUS RHAMNOSUS GG 1 EACH CAP PO SCH (09:05)
[2018-08-03] MEDS: LISINOPRIL 20 MG TAB PO SCH (09:05)
[2018-08-03] MEDS: cefTRIAXone 2,000 MG in DEXTROSE 5% 100 ML IV SCH ×2 (09:07→20:44)
--- NOTE | 2018-08-03 10:00 | NUR ---
DR. GRAYSON AT BEDSIDE. INFORMED PATIENT'S HEPARIN PUT ON HOLD TODAY DUE TO PLANNED LUMBAR TAP, BOTH LEGS WITH SCDs. OK PER DR. GRAYSON
--- NOTE | 2018-08-03 10:04 | NUR ---
SCREEN FOR LOW GOGO SCALE: PT. SKIN INTACT NO REDNESS. ALL PRESSURE INJURY PREVENTION INTERVENTIONS IN PLACE. -TURN AND REPOSITION PATIENT Q 2H -ASSESS AND MONITOR SKIN CONDITION DURING POSITION CHANGE -OFFLOAD BILATERAL HEELS BY PLACING PILLOWS UNDER CALVES AT ALL TIMES, UNLESS OTHERWISE CONTRAINDICATED -PRESSURE REDISTRIBUTION SURFACE THERAPY -KEEP SKIN CLEAN AND DRY AT ALL TIMES.
--- NOTE | 2018-08-03 10:50 | NUR ---
ECHO BEING PERFORMED AT BED SIDE BY FOREST FIRE SPECIALIST SUPERVISOR
--- NOTE | 2018-08-03 11:24 | NUR ---
VANCOMYCIN TROUGH RESULT STILL PENDING. FOLLOWED UP LAB
[2018-08-03] MEDS: INSULIN LISPRO SLIDING SCALE 100 UNITS/ML VIAL SUBQ PRN ×2 (11:27→15:51)
[2018-08-03] MEDS: VANCOMYCIN 750 MG in DEXTROSE 5% 250 ML IV SCH ×2 (11:55→23:31)
--- NOTE | 2018-08-03 12:30 | NUR ---
DR. ROSEN CALLED , AFTER HE DISCUSSED WITH ERNESTINE CHIANG, HE SAID D/C OLD CENTRAL LINE AFTER THE LAST DOSE OF ANTIBIOTIC OFTHE DAY AND ALSO HOLD TPN THEN REMOVE THE PICC LINE . THEN CALL THE PICC LINE NURSE TO INSERT THE NEW ONE IN THE MORNING ANE RESUME THE MEDICATION ORDERED.
--- NOTE | 2018-08-03 16:00 | NUR ---
PATIENT TRANSFERRED TO ICU 8 VIA BED, CLINICAL NURSE LEADER FOR INFECTION CONTROL PURPOSES. PATIENT TOLERATED
--- NOTE | 2018-08-03 16:30 | NUR ---
Sponge bath rendered, catheter care rendered. Oral care with VAP kit and routine repositioning done. Skin intact
--- NOTE | 2018-08-03 17:00 | NUR ---
INFORMED DR. ESPINAL OF PATIENT'S SBP TRENDS IN THE 150-160 AND PHYSICIAN ADVISE TO CONTINUE MONITORING
--- NOTE | 2018-08-03 19:12 | NUR ---
RECEIVED REPORT FROM AM SHIFT. PT. MODERATELY SEDATED. RASS -3. UNABLE TO TRACK MOVEMENTS. ON POSSIBLE DROPLET PRECAUTIONS AT THIS TIME. BREATH SOUNDS CLEAR BILAT, EVEN UNLABORED BREATHING. VENT SETTING AC FIO2 30, VT 500 PEEP 5. ENDOTRACHEAL SZ 7. 25 @ LIP. SR ON MONITOR. NO JVD NO EDEMA NOTED. NGT IN PLACE TO RIGHT NARE. 0 RESIDUAL NOTED. ON FEEDING VITAL AF 10ML/HR. ABD NONDISTENDED, SOFT. F/C IN PLACE. CLEAR YELLOW, NO FOUL ODOR. CENTRAL LINE TO RIGHT IJ. ON PROPOFOL DRIP 30MCG/KG/MIN DRY WEIGHT USED 60 KG FOR TITRATION. ON FENTANYL DRIP 30MCG. SKIN INTACT. BED IN LOWEST POSITION. SIDE RAILS UP X4. WILL CONTINUE TO MONITOR.
--- NOTE | 2018-08-03 19:14 | NUR ---
REPORT GIVEN TO NIGHT RN
[2018-08-03] MEDS: TOPIRAMATE 25 MG TAB PO SCH (20:44)
[2018-08-03] MEDS ORDERED: VANCOMYCIN 1,000 MG VIAL ONE (21:12)
[2018-08-04] VITALS (101 sets, daily range): BP systolic 101–172; BP diastolic 54–101
--- NOTE | 2018-08-04 00:03 | NUR ---
PT CONTINUES TO BE TACHYCARDIC AND PRESENTS TACHYPNEA. DR. MCKEON MADE AWARE.
[2018-08-04] MEDS ORDERED: HYDROmorphone PFS 2 MG/ML SYR IVP ONE (00:05)
[2018-08-04] MEDS: DEXT 5% / NACL 0.45% 1,000 ML IV SCH ×3 (01:33→17:11)
[2018-08-04] MEDS: PROPOFOL 1000 MG/100 ML PREMIX 100 ML IV PRN ×6 (01:34→23:30)
[2018-08-04] MEDS: fentaNYL 1 MG in NACL 0.9% 80 ML IV PRN ×2 (01:54→23:35)
--- NOTE | 2018-08-04 01:56 | NUR ---
STARTED NEW BAG OF FENTANYL AT 10MCG/KG/HR.
--- NOTE | 2018-08-04 03:50 | NUR ---
RT AT BEDSIDE AT THIS TIME.
[2018-08-04 06:07] LABS: BASOPHILS % (AUTO) 0.1 % (0.0-2.0); EOSINOPHILS % (AUTO) 0.1 % (0.0-4.0); HEMATOCRIT 23.6 % (36-48); HEMOGLOBIN 7.7 g/dL (12.0-16.0); LYMPHOCYTES # (AUTO) 2.3 K/uL (2.5-16.5); LYMPHOCYTES % (AUTO) 18.1 % (20.5-51.1); MEAN CORPUSCULAR HEMOGLOBIN 29 pg (27-31); MEAN CORPUSCULAR HGB CONC 33 g/dL (33-37); MEAN CORPUSCULAR VOLUME 88.9 fL (80-94); MONOCYTES # (AUTO) 1.5 K/uL (0.8-1.0); MONOCYTES % (AUTO) 12.1 % (1.7-9.3); NEUTROPHILS # (AUTO) 8.9 K/uL (1.8-7.7); NEUTROPHILS % (AUTO) 69.6 % (42.2-75.2); PLATELET COUNT (AUTO) 191 K/uL (140-450); RED BLOOD CELL COUNT(AUTO) 2.65 MIL/uL (4.20-5.40); RED CELL DISTRIBUTION WIDTH 13.7 % (11.6-13.7); WHITE BLOOD COUNT (AUTO) 12.8 K/uL (4.8-10.8)
[2018-08-04] MEDS: BLOOD GLUCOSE MONITORING 1 DEV DEV FS SCH ×4 (06:33→21:01)
--- NOTE | 2018-08-04 06:36 | NUR ---
DR. ROSEN AT BEDSIDE AT THIS TIME. UPDATED ON PTS CURRENT CONDITION. WILL CONTINUE TO FOLLOW UP ANY ADDITIONAL ORDERS.
[2018-08-04 06:44] LABS: ANION GAP 11.4 (8-16); CARBON DIOXIDE 26.4 mmol/L (21-32); CREATININE 0.9 mg/dL (0.6-1.3)
[2018-08-04 06:46] LABS: MAGNESIUM 1.3 mg/dL (1.8-2.4); PHOSPHORUS 2.8 mg/dL (2.5-4.9)
[2018-08-04 06:48] LABS: POTASSIUM 2.8 mmol/L (3.5-5.1)
--- NOTE | 2018-08-04 07:02 | NUR ---
RECEIVED CRIT LAB VALUE OF 2.7. REPORTED TO DR. MCKEON.
--- NOTE | 2018-08-04 07:05 | NUR ---
RECEIVED BEDSIDE REPORT FROM PIPE BOWL PAINT TRIMMER RN, SABIHA, FOR CONTINUITY OF CARE. PATIENT IS SEDATED, UNABLE TO FOLLOW COMMANDS, OPENS EYES WITH NONPURPOSEFUL MOVEMENT. PATIENT SKIN IS WARM, DRY, INTACT. SHE HAS CENTRAL LINE TO RIGHT IJ AND PERIPHERAL LINE TO R.WRIST AND LEFT FA. PATIENT HAS ETT TO VENT, BREATHING EVEN AND UNLABORED. SR ON MONITOR. FLACC 0, RASS-3. PATIENT HAS NG TUBE TO RIGHT NARES IN PLACE. WILSON CATHETER IN PLACE TO CLEAR YELLOW URINE. NO SIGNS OF DISTRESS NOTED AT THIS TIME. SAFETY PRECAUTIONS ASSESS AND ENFORCED. HOB IS 30 DEGREES. WILL CONTINUE TO MONITOR
--- NOTE | 2018-08-04 07:17 | NUR ---
ENDORSED CARE TO INCOMING SHIFT FOR CONTINUITY OF CARE
[2018-08-04] MEDS ORDERED: PROBIOTIC SCREEN 1 EA MISC MC PRN (07:45)
--- NOTE | 2018-08-04 08:00 | NUR ---
PT TRANSFERRED TO CT FOR PROCEDURE VIA AMBU BAG WHILE PT IN CT PT PLACED ON CARESCAPE VENT WITH SETTINGS CHARTED X1 HOUR PROCEDURE DONE NO ILL EFFECTS NOTED 0900 PT TRANSFERED BACK TO ICU AND PLACED BACK ON VENT WITH SAME SETTINGS CHARTED SXN WITH MOD SECS OFF WHITE NO ILL EFFECTS NOTED
--- NOTE | 2018-08-04 08:01 | NUR ---
DR. UMANZOR AND RESIDENT PHYSICIANS AT BEDSIDE TO ROUND ON PATIENT. UPDATED ON PATIENT'S CONDITION. WILL FOLLOW UP ON ANY ORDERS.
[2018-08-04] MEDS ORDERED: MAG SULF 2000 MG/WATER PREMIX 100 ML IV ONE (08:55)
[2018-08-04] MEDS: cefTRIAXone 2,000 MG in DEXTROSE 5% 100 ML IV SCH ×2 (09:00→20:51)
[2018-08-04] MEDS ORDERED: POTASSIUM CHLORIDE 20% 40 MEQ/15 ML UDC GT SCH (09:00)
--- NOTE | 2018-08-04 09:15 | NUR ---
PATIENT BACK FROM CT GUIDED LUMBAR PUNCTURE, RADIOLOGIST WAS IN CORRECT PLACEMENT HOWEVER WAS NOT ABLE TO GET ANY SPINAL FLUID. DR. ROSEN AWARE. PATIENT TOLERATED WELL. NO SIGNS OF DISTRESS NOTED.
[2018-08-04] MEDS ORDERED: MAGNESIUM SULFATE 4GM in STERILE WATER 100 ML PREMIX IV SCH (09:30)
[2018-08-04] MEDS: FERROUS SULFATE 300 MG/5 ML UDC GT SCH (10:10)
[2018-08-04] MEDS: HYDROCHLOROTHIAZIDE 25 MG TAB PO SCH (10:11)
[2018-08-04] MEDS: LACTOBACILLUS RHAMNOSUS GG 1 EACH CAP PO SCH (10:11)
[2018-08-04] MEDS: PANTOPRAZOLE 40 MG INJ VIAL IVP SCH (10:11)
[2018-08-04] MEDS: LISINOPRIL 20 MG TAB PO SCH (10:12)
[2018-08-04] MEDS: VANCOMYCIN 750 MG in DEXTROSE 5% 250 ML IV SCH ×2 (11:27→22:42)
[2018-08-04] MEDS: LORazepam 2 MG/ML VIAL IVP PRN (11:28)
--- NOTE | 2018-08-04 11:49 | NUR ---
PATIENT HAD TEMPERATURE OF 101.2, ADMINISTERED TYLENOL PRN FOR FEVER. PATIENT TOLERATED WELL.
[2018-08-04] MEDS: ACETAMINOPHEN 325 MG TAB PO PRN ×2 (11:54→23:14)
[2018-08-04] MEDS ORDERED: KCL 20 MEQ/WATER INJ PREMIX 200 ML IV SCH (13:00)
--- NOTE | 2018-08-04 13:59 | NUR ---
Direct Marketing Specialist Note: I called and spoke with mold yarn supervisor from case management department at [facility], [place] ; [place] stated they don't have any family listed on patient's file. Addendum: 08/04/18 at 1403 by Sara Castro SS Per mold yarn supervisor of case management department at [facility], [place] ; patient had been living at their facility since 06/02/18.
--- NOTE | 2018-08-04 15:02 | NUR ---
08/04/18 RD FOLLOW UP COMPLETED PLEASE REFER TO NUTRITION ASSESSMENT UNDER CARE ACTIVITY FOR ESTIMATED NUTRITIONAL NEEDS. 1. CONTINUE VITAL AT 55 ML/HR TOLERATED -THIS WILL PROVIDE 1320 ML, 1584 KCAL, AND 99 GM OF PROTEIN, WHICH MEETS 85% OF ESTIMATED KCAL NEEDS AND 100% OF ESTIMATED PROTEIN NEEDS. 2. CONTINUE FLUSH [address] TO FOLLOW-UP 2-3 DAYS, HIGH RISK [address]MON[address]
[2018-08-04] MEDS: INSULIN LISPRO SLIDING SCALE 100 UNITS/ML VIAL SUBQ PRN (17:17)
--- NOTE | 2018-08-04 17:59 | NUR ---
CONTINUED TO MONITOR PT ON VENT WITH SETTINGS CHARTED BREATH SOUNDS PRESENT ADRIAN ANDRES SXN PT WITH MIN TO MOD AMT OFF WHITE SECS ETT TUBE SECURE AMBU BAG AT BEDSIDE VENT PLUGGED INTO RED OUTLET
[2018-08-04 18:02] LABS: APPEARANCE,URINE CLEAR (CLEAR); BILIRUBIN,URINE NEGATIVE (NEGATIVE); BLOOD, URINE TRACE-I (NEGATIVE); COLOR,URINE YELLOW (YELLOW); LEUKOCYTE ESTERASE ,URINE NEGATIVE (NEGATIVE); NITRITE, URINE NEGATIVE (NEGATIVE); UGLUCOSE NEGATIVE (NEGATIVE)
--- NOTE | 2018-08-04 18:40 | NUR ---
PATIENT CLEANED AND REPOSITIONED, TOLERATES WELL.
--- NOTE | 2018-08-04 18:51 | NUR ---
FLOOR FINISHER IN TO COLLECT BLOOD CULTURE, PATIENT TOLERATED WELL.
--- NOTE | 2018-08-04 19:19 | NUR ---
ENDORSED CONTINUITY OF CARE TO PROGRESS DEVELOPER RNDELONTE. NO SIGNS OF DISTRESS NOTED.
--- NOTE | 2018-08-04 19:30 | NUR ---
RECEIVED BEDSIDE REPORT FROM MORNING SHIFT RN, JUSTINO, FOR CONTINUITY OF CARE. AFEBRILE, TEMP 99.0, PERRL. RASS -3, ETT TO VENT, FIO2=30, JH=481, RATE =12, FLOW= 45L/MIN. PMAX=50. LUNG SOUND CLEAR CLEAR, BOWEL SOUNDS ACTIVE X4, NGT TO FEEDING AT 35ML/HR. WILSON IN PLACE, URINE IS LIGHT YULY IN COLOR. ST ON PROGRAM MANAGEMENT MANAGER. PNF=156, AR=445, SATING 99%, RR=27. RIGHT IJ INFUSING FENTANYL AT 10ML/HR, AND PROPOFOL AT 18MCG/MIN. D5NS AT 130ML/HR. SKIN INTACT AND NORMAL IN COLOR. HOB ELEVATED ABOVE 30 DEG, DROPLET PRECAUTIONS. Addendum: 08/05/18 at 2001 by Kenisha Amador RN PROPOFOL TITRATION CALCULATED BASED ON DRY WEIGHT OF 60KG FOR PT.
[2018-08-04] MEDS: TOPIRAMATE 25 MG TAB PO SCH (21:01)
--- NOTE | 2018-08-04 22:40 | NUR ---
INCREASED TUBE FEEDING TO 50ML/HR PER ORDER. RESIDUAL <10ML.
--- NOTE | 2018-08-04 23:45 | NUR ---
DR. SINHA AT BEDSIDE IN TO SEE PATIENT.
[2018-08-05] VITALS (107 sets, daily range): BP systolic 95–174; BP diastolic 51–105
[2018-08-05] MEDS ORDERED: DILTIAZEM 30 MG TAB PO SCH ×2 (00:15)
[2018-08-05] MEDS: DEXT 5% / NACL 0.45% 1,000 ML IV SCH ×4 (00:53→17:42)
[2018-08-05] MEDS: LORazepam 2 MG/ML VIAL IVP PRN (01:09)
--- NOTE | 2018-08-05 01:15 | NUR ---
VAP ORAL CARE PROVIDED, PT REPOSITOINED. FENTANYL DRIP AT 12.5ML/HR. RASS -3.
[2018-08-05] MEDS: HYDROcodone/APAP 5/325 MG 1 TAB TAB PO PRN (02:28)
--- NOTE | 2018-08-05 02:35 | NUR ---
AM CARE RENDERED, LINEN CHANGED, PT SUCTIONED THICK WHITE SECRETIONS NOTED. PT TOLERATED FAIR NO ACUTE DISTRESS NOTED. WILL CONTINUE TO OBSERVE.
--- NOTE | 2018-08-05 02:59 | NUR ---
TUBE FEEDING AT GOAL OF 55ML/HR. NO RESIDUAL. PT REPOSITIONED. BED BATH AND FRESH LINENS PROVIDED TO PT.
[2018-08-05] MEDS: DILTIAZEM 30 MG TAB PO SCH ×4 (05:32→23:42)
--- NOTE | 2018-08-05 05:39 | NUR ---
WILSON CATH CARE KIT AND ORAL CARE PROVIDED. RT AT BEDSIDE PROVIDED SUCTIONING. HOB ELEVATED ABOVE 30 DEG. CARDIZEM GIVEN, HR = 112-120. RASS -3. NGT SET TO FEED AT 55ML/HR. URINE OUTPUT OF 1450ML.
[2018-08-05 06:14] LABS: FOLIC ACID 8.6 ng/mL (>3.0)
[2018-08-05 06:14] LABS: HEMATOCRIT 22.8 % (36-48); HEMOGLOBIN 7.5 g/dL (12.0-16.0); MEAN CORPUSCULAR HEMOGLOBIN 30 pg (27-31); MEAN CORPUSCULAR HGB CONC 33 g/dL (33-37); MEAN CORPUSCULAR VOLUME 90.1 fL (80-94); PLATELET COUNT (AUTO) 195 K/uL (140-450); RED BLOOD CELL COUNT(AUTO) 2.53 MIL/uL (4.20-5.40); RED CELL DISTRIBUTION WIDTH 14.1 % (11.6-13.7); WHITE BLOOD COUNT (AUTO) 14.8 K/uL (4.8-10.8)
[2018-08-05 06:14] LABS: HEPATITIS B CORE AB TOTAL Positive (Negative)
[2018-08-05] MEDS: BLOOD GLUCOSE MONITORING 1 DEV DEV FS SCH ×4 (06:32→20:14)
--- NOTE | 2018-08-05 06:41 | NUR ---
CALLED DR. GRAYSON, UPDATED ON ELEVATED HR. ORDERED TO GIVE COREG 6.25MG BID, TO GIVE NOW. WILL CARRYOUT.
[2018-08-05 06:46] LABS: MAGNESIUM 1.4 mg/dL (1.8-2.4); PHOSPHORUS 3.4 mg/dL (2.5-4.9)
[2018-08-05 06:47] LABS: ANION GAP 12.4 (8-16); CARBON DIOXIDE 25.3 mmol/L (21-32); CREATININE 0.9 mg/dL (0.6-1.3)
[2018-08-05] MEDS ORDERED: CARVEDILOL 6.25 MG TAB PO SCH ×3 (06:55→21:00)
[2018-08-05 06:56] LABS: POTASSIUM 2.7 mmol/L (3.5-5.1)
--- NOTE | 2018-08-05 06:56 | NUR ---
CALLED PHARMACY TO VERIFY UPDATED ON NEW ORDER FOR COREG PER DR. GRAYSON.
--- NOTE | 2018-08-05 07:00 | NUR ---
LAB CALLED, FLIP LARSON, REPORTED CRITICAL LAB POTASSIUM 2.7.
[2018-08-05] MEDS ORDERED: MAG SULF 2000 MG/WATER PREMIX 100 ML IV ONE (07:05)
[2018-08-05 07:07] LABS: LYMPHOCYTES % (MANUAL) 14 % (20-46); MONOCYTES % (MANUAL) 5 % (5-12)
--- NOTE | 2018-08-05 07:10 | NUR ---
recived pt on vent with settings as charted breath sounds present clear sxn pt with min amt secs ett secure ambu bag at bedside vent plugged into red outlet will continue to monitor pt on vent
--- NOTE | 2018-08-05 07:20 | NUR ---
CALLED DR. BARNHART, UPDATED ON CRITICAL LAB VALUE POTASSIUM 2.7.
--- NOTE | 2018-08-05 07:34 | NUR ---
GAVE REPORT TO MORNING SHIFT RNRANDY, FOR CONTINUITY OF CARE.
--- NOTE | 2018-08-05 07:35 | NUR ---
RECEIVED REPORT FORM MOBILE PATROL OFFICER NURSE AT BEDSIDE, PT SEDATED, RASS -2, RESPOND TO PAINFUL STIMULI, TEMP 100.8F, NOTED, COOLING MEASURE IN USE, CENTRAL LINE TO RIJ, TLC, RUNNING WITH D5 1/2NS AT 130ML/HR, PROPOFOL AT 50MCG/MIN, AND FENTANYL AT 125 MCG/MIN, NGT TO RIGHT NARES, FEEDING WITH VITAL AF AT 55ML/HR, 200ML RESIDUALS NOTED, MD MADE AWARE, HOLD AT THIS TIME, ETT TO VENT WITH SETTING FIO2 30, TV 500, R 12, PEEP 5, NO S/S OF DISTRESS, CLEAR LUNG SOUNDS MARGO, ST ON FOOD TRUCK CATERER NOTED, SOFT ABDOMEN WITH ACTIVE BOWEL SOUNDS, WILSON CATHETER IN PLACE WITH YELLOW CLEAR URINE VIA GRAVITY, GENERALIZED WEAKNESS TO ALL EXTREMITIES NOTED, SKIN IS WARM AND DRY TO TOUCH, NO OPEN WOUND PRESENT, IV SITE TO RIGHT FOREARM 22GA AND LEFT FOREARM 20GA, PATENT AND SL. FLACC 0, HOB ELEVATED, SAFETY MEASURES IN PLACE, WILL CONTINUE TO MONITOR.
--- NOTE | 2018-08-05 07:40 | NUR ---
DR. ANDERSEN CAME IN TO SEE PT AT BEDSIDE, ASK TO DO SEDATION VACATION TODAY.
[2018-08-05] MEDS ORDERED: MAGNESIUM SULFATE 4GM in STERILE WATER 100 ML PREMIX IV SCH (08:00)
--- NOTE | 2018-08-05 08:00 | NUR ---
NO S/S OF DISTRESS, ORAL CARE PROVIDED, POSITION CHANGED FOR OFF LOAD PRESSURE.
[2018-08-05] MEDS ORDERED: VANCOMYCIN PER PHARMACY MC PRN (08:35)
[2018-08-05] MEDS: PANTOPRAZOLE 40 MG INJ VIAL IVP SCH (08:40)
[2018-08-05] MEDS: cefTRIAXone 2,000 MG in DEXTROSE 5% 100 ML IV SCH ×2 (08:40→20:13)
[2018-08-05] MEDS: LISINOPRIL 20 MG TAB PO SCH (08:41)
[2018-08-05] MEDS: POTASSIUM CHLORIDE 20% 40 MEQ/15 ML UDC GT SCH (08:41)
[2018-08-05] MEDS: ACETAMINOPHEN 325 MG TAB PO PRN ×2 (08:41→19:49)
[2018-08-05] MEDS: FERROUS SULFATE 300 MG/5 ML UDC GT SCH (08:41)
[2018-08-05] MEDS: LACTOBACILLUS RHAMNOSUS GG 1 EACH CAP PO SCH (08:41)
[2018-08-05] MEDS: HYDROCHLOROTHIAZIDE 25 MG TAB PO SCH (08:42)
--- NOTE | 2018-08-05 09:00 | NUR ---
PROPOFOL HELD AT THIS TIME, RASS -3.
[2018-08-05] MEDS: fentaNYL 1 MG in NACL 0.9% 80 ML IV PRN ×2 (09:12→21:17)
--- NOTE | 2018-08-05 10:00 | NUR ---
NO CHANGE OF CONDITION AT THIS TIME, RASS -3, FLACC 0, POSITION CHANGED FOR OFF LOAD PRESSURE.
[2018-08-05] MEDS: VANCOMYCIN 750 MG in DEXTROSE 5% 250 ML IV SCH ×2 (11:14→22:41)
--- NOTE | 2018-08-05 11:30 | NUR ---
STARTED DECREASE FENTANYL FOR SEDATION VACATION.
[2018-08-05] MEDS ORDERED: KCL 20 MEQ/WATER INJ PREMIX 200 ML IV SCH ×2 (12:00→17:00)
--- NOTE | 2018-08-05 12:00 | NUR ---
NO S/S OF DISTRESS, VSS, FLACC 0, RASS -3, ORAL CARE PROVIDED, POSITION CHANGED FOR OFF LOAD PRESSURE.
--- NOTE | 2018-08-05 12:05 | NUR ---
RECHECKED RESIDUALS STILL >150ML, CONTINUE TO HOLD TUBE FEEDING AT THIS TIME.
[2018-08-05] MEDS: INSULIN LISPRO SLIDING SCALE 100 UNITS/ML VIAL SUBQ PRN ×2 (12:07→20:37)
--- NOTE | 2018-08-05 14:00 | NUR ---
DR. SINHA CAME IN TO SEE PT AT BEDSIDE, STATED NO NEED ISOLATION ANYMORE.
--- NOTE | 2018-08-05 16:00 | NUR ---
PT IS MORE AWAKE WITH EYES OPEN, NO S/S OF DISTRESS, VSS, PM CARE AND ORAL CARE PROVIDED, F/C CARE PROVIDED, POSITION CHANGED FOR OFF LOAD PRESSURE.
--- NOTE | 2018-08-05 16:05 | NUR ---
RESIDUAL CHECK WITH 5ML AT THIS TIME, RESUME TUBE FEEDING AT 15ML/HR.
--- NOTE | 2018-08-05 17:30 | NUR ---
CONTINUED TO MONITOR PT ON VENT WITH SETTINGS CHARTED BREATH SOUNDS PRESENT BILAT CLEAR SXN PT WITH MIN ANT OFF WHITE SECS AMBU BAG AT BEDSIDE VENT PLUGGED INTO RED OUTLET
--- NOTE | 2018-08-05 18:50 | NUR ---
DR. GRAYSON CAME IN TO SEE PT AT BEDSIDE, MADE AWARE OF ELEVATED HR, BP AND RR, WILL FOLLOW UP WITH NEW ORDERS.
--- NOTE | 2018-08-05 19:20 | NUR ---
RECEIVED BEDSIDE REPORT FROM MORNING SHIFT RNRANDY, [facility] CONTINUITY OF CARE. PERRL, TEMP OF 102.6. NONVERBAL, RESPONDS TO LIGHT PAIN/TOUCH. OPENS EYES SPONTANEOUSLY. LUNG SOUNDS CLEAR ON UPPER/LOWER BILATERAL LOBES. RT AT BEDSIDE TO ADMINISTER BREATHING TREATMENT. ETT TO VENT, SETTINGS AT FI02=30, FX=918, RR=12, FLOW=8, PEEP=5, PMAX=50. NGT FEEDING VITALS AF AT 15ML/HR. AUSCULTATED FOR PROPER PLACEMENT, NO RESIDUAL (<10ML). WILSON IN PLACE, URINE IS LIGHT YULY IN COLOR. ST WITH HR 120-123. ST ON PARTY PLAN SALES CONSULTANT. AV=880/84, RR=29, SATING AT 95%. RIGHT IJ INFUSING FENTANYL AT 9.5ML/HR, D51/2NS AT 110ML/HR, 20 MEQ KCL AT 50ML/HR. SKIN I INTACT. GENERALIZED WEAKNESS, PILLOW SUPPORT ON BONY PROMINCES, HOB ELEVATED ABOVE 30 DEG. BED IN LOWST POSITION. STANDARD PRECAUTIONS MAINTAINED.
[2018-08-05] MEDS: ALBUTEROL SULFATE/IPRATROPIU 3 ML SOL IH PRN (19:25)
[2018-08-05] MEDS ORDERED: CARVEDILOL 12.5 MG TAB PO SCH (19:30)
--- NOTE | 2018-08-05 19:30 | NUR ---
REPORT GIVEN TO TOUCH UP EDGER NURSE FOR CONTINUE OF CARE.
--- NOTE | 2018-08-05 19:48 | NUR ---
TEMP 102.6, TYLENOL GIVEN PER ORDER AND ICE PACK PROVIDED TO PATIENT. 12.5MG COREG GIVEN AT THIS TIME.
[2018-08-05] MEDS: TOPIRAMATE 25 MG TAB PO SCH (20:14)
--- NOTE | 2018-08-05 20:50 | NUR ---
PT IS LYING QUIETLY IN BED. DOES NOT RESPOND TO VOICE. VSS, HR=99, KH=626/54, RR=17, SATING AT 96%.
--- NOTE | 2018-08-05 21:32 | NUR ---
CALLED AFTER HOURS PHARMACY [facility], INFORMED ONE TIME DOES 12.5MG COREG GIVEN AT 1930. ENDORSED PT VITALS UY=105/66. PT HAS COREG 12.5MG BID DUE 2099, PHARMACIST WILL REVIEW/UPDATE ORDER.
--- NOTE | 2018-08-05 22:09 | NUR ---
TITRATED FENTANYL TO 85MCG/HR =8.5ML/HR. RASS -3
--- NOTE | 2018-08-05 23:00 | NUR ---
TEMP: 99.6 VIA AXILLARY. PT IS SLEEPING, AROUSES TO TOUCH/VOICE.
[2018-08-06] VITALS (105 sets, daily range): BP systolic 109–161; BP diastolic 50–96
--- NOTE | 2018-08-06 00:24 | NUR ---
TITRATED TO 8MCG/HR = 8ML/HR. PT IS SLEEPING, RASS -3. AROUSES TO TOUCH/VOICE. Addendum: 08/06/18 at 0024 by Kenisha Amador RN TITRATED FENTANYL DRIP.
--- NOTE | 2018-08-06 01:10 | NUR ---
HELD TUBE FEEDING, RESIDUAL OF 65ML.
[2018-08-06] MEDS: ACETAMINOPHEN 325 MG TAB PO PRN ×2 (03:04→17:24)
--- NOTE | 2018-08-06 03:13 | NUR ---
TEMP 102.2, TYLENOL GIVEN PER ORDER W/ COOLING MEASURES. RESIDUAL OF 20ML VIA NGT. PT IS SLEEPING, AROUSES TO TOUCH. RASS -3. FENTANYL INFUSING AT 8ML/HR. PT REPOSITIONED, HOB ELEVATED.
[2018-08-06] MEDS: DEXT 5% / NACL 0.45% 1,000 ML IV SCH (03:44)
--- NOTE | 2018-08-06 04:01 | NUR ---
TUBE FEEDING RESUMED AT 15ML/HR, RESIDUAL <5ML.
--- NOTE | 2018-08-06 05:07 | NUR ---
AXILLARY TEMP = 99.2, TYLENOL EFFECTIVE WITH COOLING MEASURES. AM CARES PROVIDED. Addendum: 08/06/18 at 0509 by Kenisha Amador RN RASS -3, RESPONDS TO VOICE
[2018-08-06] MEDS: DILTIAZEM 30 MG TAB PO SCH ×4 (05:26→23:25)
[2018-08-06 05:35] LABS: RED BLOOD CELL COUNT(AUTO) 2.51 MIL/uL (4.20-5.40); WHITE BLOOD COUNT (AUTO) 14.9 K/uL (4.8-10.8)
--- NOTE | 2018-08-06 05:45 | NUR ---
TUBE FEEDING REMAINS AT 15ML/HR, RESIDUAL OF 30ML.
[2018-08-06 05:48] LABS: HEMATOCRIT 22.3 % (36-48); HEMOGLOBIN 7.2 g/dL (12.0-16.0); MEAN CORPUSCULAR HEMOGLOBIN 29 pg (27-31); MEAN CORPUSCULAR HGB CONC 32 g/dL (33-37); MEAN CORPUSCULAR VOLUME 88.8 fL (80-94); PLATELET COUNT (AUTO) 248 K/uL (140-450); RED CELL DISTRIBUTION WIDTH 14.3 % (11.6-13.7)
[2018-08-06 05:51] LABS: ANION GAP 10.2 (8-16); CARBON DIOXIDE 26.8 mmol/L (21-32); CREATININE 0.8 mg/dL (0.6-1.3)
[2018-08-06 05:55] LABS: MAGNESIUM 1.6 mg/dL (1.8-2.4); PHOSPHORUS 2.5 mg/dL (2.5-4.9)
--- NOTE | 2018-08-06 06:05 | NUR ---
DR. HENDRICKS AT BEDSIDE TO SEE PT, UPDATED ON PT CONDITION, PT IS IN STABLE CONDITION AT THIS TIME.
[2018-08-06 06:12] LABS: LYMPHOCYTES % (MANUAL) 12 % (20-46); METAMYELOCYTES % 1 % (0-0); MONOCYTES % (MANUAL) 8 % (5-12); MYELOCYTES % 1 % (0-0)
--- NOTE | 2018-08-06 06:42 | NUR ---
REC'D PT ON CARESCAPE VENT SETTINGS AC 12 VT 500 PEEP 5 FIO2 30% ALARMS ON AND AUDIBLE AND VENT IS PLUGGED INTO RED OUTLET AMBU BAG AT SIDE OF VENT NO HHN NEEDED AT THIS TIME, B\S ARE RHONCHI SXN PT MODERATE AMT OF THIN YELLOW SECRETIONS PT IS ORALLY INTUBATED WITH 7.5 AT 23CM AT TEETH AT MIDLINE AND SKIN INTEGRITY IS INTACT PT IS SLEEPING
--- NOTE | 2018-08-06 07:15 | NUR ---
ENDORSED TO MORNING SHIFT RNCELINA PT IN STABLE CONDITION AT THIS TIME.
--- NOTE | 2018-08-06 07:16 | NUR ---
RECEIVED REPORT FROM MARIAN REYES
[2018-08-06] MEDS: BLOOD GLUCOSE MONITORING 1 DEV DEV FS SCH ×4 (07:28→21:38)
[2018-08-06] MEDS: INSULIN LISPRO SLIDING SCALE 100 UNITS/ML VIAL SUBQ PRN ×2 (07:29→17:22)
[2018-08-06] MEDS ORDERED: KCL 20 MEQ/WATER INJ PREMIX 200 ML IV ONE (08:00)
[2018-08-06] MEDS ORDERED: CARVEDILOL 6.25 MG TAB PO SCH (08:00)
[2018-08-06] MEDS ORDERED: MAG SULF 2000 MG/WATER PREMIX 100 ML IV ONE (08:00)
--- NOTE | 2018-08-06 08:00 | NUR ---
PATIENT OPENS EYES SPONTANEOUSLY, NOT TRACKING, LOCALIZES TO PAIN TRYING TO REACH ETT ONCE IN A WHILE, REORIENTED PATIENT BUT PATIENT NOT OBEYING COMMANDS-WILL MONITOR CLOSELY. WITH ENDOTRACHEAL TUBE TO VENTILATOR AC 12 30% TIDAL VOLUME 500 PEEP 5 SO2 98%, SINUS 85 BPM ON MONITOR, WITH NGT AT RIGHT NARES RECEIVED PATIENT WITH FEEDING CURRENTLY OFF, NGT PATENT ON AUSCULTATION AND ZERO RESIDUAL UPON ASPIRATION, KEPT HEAD OF BED 30 DEGREES AND UP, RIGHT IJ CENTRAL LINE WITH FENTANYL INFUSING AT 80 MCG/HR., IV FLUID 110 ML/HR., SKIN IS INTACT, WILSON CATHETER TO UROMETER
[2018-08-06] MEDS ORDERED: KCL 20 MEQ/WATER INJ PREMIX 200 ML IV SCH (08:08)
[2018-08-06] MEDS ORDERED: MAGNESIUM SULFATE 4GM in STERILE WATER 100 ML PREMIX IV SCH (08:10)
[2018-08-06] MEDS: POTASSIUM CHLORIDE 20% 40 MEQ/15 ML UDC GT SCH (08:15)
[2018-08-06] MEDS: FERROUS SULFATE 300 MG/5 ML UDC GT SCH (08:15)
[2018-08-06] MEDS: LACTOBACILLUS RHAMNOSUS GG 1 EACH CAP PO SCH (08:15)
[2018-08-06] MEDS: LISINOPRIL 20 MG TAB PO SCH (08:15)
[2018-08-06] MEDS: PANTOPRAZOLE 40 MG INJ VIAL IVP SCH (08:16)
[2018-08-06] MEDS: cefTRIAXone 2,000 MG in DEXTROSE 5% 100 ML IV SCH ×2 (08:35→21:24)
[2018-08-06] MEDS ORDERED: VANCOMYCIN PER PHARMACY MC PRN (09:05)
--- NOTE | 2018-08-06 10:30 | NUR ---
PATIENT CONTINUES TO REACH FOR ETT AND LINES USING HER LEFT HAND ONLY DESPITE RN RE ORIENTING, PATIENT SEEMS NOT WITH IT. DR. HENDRICKS MADE AWARE AND PLAN IS TO KEEP PATIENT OFF DIPRIVAN SO ORDER FOR RESTRAINTS WERE MADE. WILL FOLLOW PER PROTOCOL
[2018-08-06] MEDS: fentaNYL 1 MG in NACL 0.9% 80 ML IV PRN (10:35)
--- NOTE | 2018-08-06 11:21 | NUR ---
DR. COE HERE WITH DR. HENDRICKS. PATIENT DECREASED ON FENTANYL TO 50 MCG/MIN., STARTED ON CPAP. DR. HENDRICKS AWARE OF PATIENT'S LATEST HGB, AND NO BM FOR HOW MANY DAYS. WILL CONTINUE TO MONITOR
--- NOTE | 2018-08-06 11:21 | NUR ---
PER DR. COE TO START WEANING PT CHANGED VENT SETTINGS TO CPAP 5 PS 10 PT IS AGITATED HR 96 RR 30 RN CELINA AT BEDSIDE
[2018-08-06] MEDS: VANCOMYCIN 750 MG in DEXTROSE 5% 250 ML IV SCH ×2 (11:31→23:24)
--- NOTE | 2018-08-06 11:45 | NUR ---
CLARIFIED WITH DR. HENDRICKS AND HE WANTS THE PATIENT OFF SEDATION FROM PROPOFOL STILL IN THE EVENT VENTILATOR SETTING WILL BE SWITCHED BACK TO AC MODE
--- NOTE | 2018-08-06 12:01 | NUR ---
PT BACK ON AC DUE TO FAILING CPAP RR 40 AND HR 99 O2 SAT OF 94% RN CELINA NOTIFIED OF CHANGES MADE
[2018-08-06] MEDS: NACL 0.9% 1,000 ML IV SCH ×2 (12:14→21:39)
--- NOTE | 2018-08-06 12:30 | NUR ---
PATIENT STILL MOVING LEFT ARM ATTEMPTING TO REACH ENDOTRACHEAL TUBE EVERY NOW AND THEN. WILL FOLLOW NON BEHAVIORAL RESTRAINT PROTOCOL PER INTERVENTION
--- NOTE | 2018-08-06 16:12 | NUR ---
PM SPONGE BATH, CATHETER CARE DONE. SKIN IS INTACT. ROUTINE REPOSITIONING AND ORAL CARE RENDERED
[2018-08-06] MEDS: CARVEDILOL 12.5 MG TAB PO SCH (17:23)
--- NOTE | 2018-08-06 19:15 | NUR ---
Received pt stable on vent support at documented settings, suction small amount of thin clear secretions, no resp distress or SOB noted at this time, 7.5 ETT secured and patent at 23 cm at the teeth, alarms set and audible, ambu bag at bedside, vent plugged into red outlet, pulse ox on, will cont to monitor.
--- NOTE | 2018-08-06 19:17 | NUR ---
REPORT GIVEN TO NIGHT RN
--- NOTE | 2018-08-06 19:25 | NUR ---
RECEIVED BEDSIDE REPORT FROM MORNING SHIFT RN. PATIENT ETT TO VENT WITH FENTANYL DRIP, NON VERBAL, ABLE OPEN HER EYES TO VOICE AT THIS TIME. RASS -2 NOTED AND OPENS EYES SPONTANEOUSLY. NO FEVER NOTED. BILATERAL LUNG SOUNDS CLEAR NOTED. RT AT BEDSIDE TO ADMINISTER BREATHING TREATMENT. VENT SETTINGS WITH FI02 30%, VT 500, RR 12, PEEP 5. SR ON THE MONITOR AT THIS TIME. NGT TO FEEDING WITH VITALS AF AT 30ML/HR AND WATER FLUSH 100ML Q6H, PLACEMENT CHECKED, RESIDUAL LESS THAN 10CC NOTED. WILSON IN PLACE DRAINING CLEAR YELLOW URINE NOTED. CENTRAL LINE TO RIGHT IJ, INFUSING FENTANYL AT 5MCG/HR AND NS AT 80ML/HR. SKIN IS INTACT. GENERALIZED WEAKNESS NOTED. SOFT WRIST RESTRAINT TO LEFT WRIST, CIRCULATION CHECKED. HOB ELEVATED ABOVE 30 DEG. BED IN LOWEST POSITION. STANDARD PRECAUTIONS MAINTAINED. CALL LIGHT WITHIN REACH. WILL CONTINUE TO MONITOR.
--- NOTE | 2018-08-06 19:30 | NUR ---
ASSESS BEHAVIOR FOR RESTRAINT OVER 10 MINS, PATIENT SHOWING UNDERSTANDING FOR INSTRUCTIONS THAT SHE NEEDS THE TUBES AND SHE WILL NOT PULLING OUT THE TUBES. NO BEHAVIOR NOTED. RELEASED THE RESTRAINT AT THIS TIME.
--- NOTE | 2018-08-06 21:15 | NUR ---
AT BEDSIDE TO CHECK THE PATIENT, WILL FOLLOW ORDER.
[2018-08-06] MEDS: TOPIRAMATE 25 MG TAB PO SCH (21:24)
--- NOTE | 2018-08-06 21:25 | NUR ---
ADMINISTERED SCHEDULED MEDICATIONS ORDERED. TOLERATED WELL WITH ETT TO VENT, NO ACUTE DISTRESS NOTED. WITH FENTANYL DRIP RASS -2 NOTED. FLACC 0. WILL CONTINUE TO MONITOR. Addendum: 08/07/18 at 0020 by Cholo Witt RN TOLERATED WELL WITH TUBE FEEDING, RESIDUAL LESS THAN 10 NOTED.
--- NOTE | 2018-08-06 21:40 | NUR ---
BS CHECKED 120 NOTED. NO COVERAGE NEEDED. WILL CONTINUE TO MONITOR.
[2018-08-07] VITALS (51 sets, daily range): BP systolic 125–161; BP diastolic 61–96
--- NOTE | 2018-08-07 | NUR ---
ADMINISTERED SCHEDULED MEDICATIONS ORDERED. RASS -2 WITH FENTANYL DRIP. INCREASED TUBE FEEDING RATE TO 45ML/HR AT THIS TIME. WILL CONTINUE TO MONITOR.
[2018-08-07] MEDS: ACETAMINOPHEN 325 MG TAB PO PRN (01:23)
--- NOTE | 2018-08-07 01:25 | NUR ---
TEMP 100.6 NOTED, ADMINISTERED PRN TYLENOL ORDERED. APPLIED COOLING MEASURE. WILL CONTINUE TO MONITOR.
[2018-08-07] MEDS: LORazepam 2 MG/ML VIAL IVP PRN ×2 (02:42→22:05)
--- NOTE | 2018-08-07 02:45 | NUR ---
AFTER CHANGED PT'S POSITION AND APPLIED COOLING MEASURE, PT GETTING AGITATED WITH TACHYCADIAC. ADMINISTERED PRN ATIVAN ORDERED, FENTANYL TITRATED UP TO 80MCG/HR. WILL CONTINUE TO MONITOR.
--- NOTE | 2018-08-07 04:00 | NUR ---
TEMP 98.8 NOTED. RASS -2 NOTED. NO ACUTE DISTRESS NOTED. FLACC 0. WILL CONTINUE TO MONITOR.
[2018-08-07] MEDS: fentaNYL 1 MG in NACL 0.9% 80 ML IV PRN (05:02)
[2018-08-07] MEDS: DILTIAZEM 30 MG TAB PO SCH ×4 (05:36→23:26)
--- NOTE | 2018-08-07 06:00 | NUR ---
INCREASED NG TUBE FEEDING TO 55ML/HR. RESIDUAL LESS THAN 10CC NOTED. WILL CONTINUE TO MONITOR.
[2018-08-07 06:06] LABS: RED BLOOD CELL COUNT(AUTO) 2.28 MIL/uL (4.20-5.40)
[2018-08-07 06:10] LABS: MEAN CORPUSCULAR HEMOGLOBIN 29 pg (27-31); MEAN CORPUSCULAR HGB CONC 32 g/dL (33-37); PLATELET COUNT (AUTO) 340 K/uL (140-450); RED CELL DISTRIBUTION WIDTH 13.9 % (11.6-13.7); WHITE BLOOD COUNT (AUTO) 12.9 K/uL (4.8-10.8)
[2018-08-07 06:19] LABS: ANION GAP 9.2 (8-16); CARBON DIOXIDE 27.2 mmol/L (21-32); CREATININE 0.8 mg/dL (0.6-1.3); POTASSIUM 3.4 mmol/L (3.5-5.1)
[2018-08-07 06:21] LABS: HEMATOCRIT 20.3 % (36-48); HEMOGLOBIN 6.6 g/dL (12.0-16.0)
[2018-08-07 06:23] LABS: PHOSPHORUS 3.6 mg/dL (2.5-4.9)
--- NOTE | 2018-08-07 06:25 | NUR ---
RECEIVED CRITICAL LABS RESULT HGB 6.6, HCT 20.3, CAME TO CHECK THE PATIENT. NOTIFIED ABOUT CRITICAL LABS. WILL FOLLOW THE ORDER.
[2018-08-07 06:34] LABS: BASOPHILS % (MANUAL) 0 % (0-2); EOSINOPHILS % (MANUAL) 0 % (0-4); LYMPHOCYTES % (MANUAL) 12 % (20-46); MONOCYTES % (MANUAL) 5 % (5-12)
--- NOTE | 2018-08-07 06:47 | NUR ---
RECEIVED PT ON CARESCAPE ON DOCUMENTED SETTINGS, ALARMS ARE ON AND AUDIBLE, PTS ET TUBE SIZE 7.5 IS SECURE 23 CM TEETH ANCHOR FAST IN PLACE, PT IN HF AWAKE WEARING SOFT MITTENS BS CLEAR NO SOB NOTED BMV HOB VENT PLUGGED INTO RED OUTLET
[2018-08-07] MEDS ORDERED: BISACODYL 10 MG SUPP RC SCH (07:00)
[2018-08-07] MEDS ORDERED: ACETAMINOPHEN 325 MG TAB PO SCH (07:00)
--- NOTE | 2018-08-07 07:03 | NUR ---
RECEIVED BEDSIDE REPORT FROM DECK MATE RN, LO FOR CONTINUITY OF CARE. PATIENT IS SEDATED WITH FENTANYL AT 80 MCG/KG. OPENS EYES SPONTANEOUSLY, ABLE TO TRACK. SKIN INTACT, WARM AND DRY. AFEBRILE. SHE HAS NGT IN R. NARES TO TUBE FEEDING AT 55ML/HR, NO RESIDUAL NOTED. SHE HAS ETT TO VENT, BREATHING EVEN AND UNLABORED. SR ON MONITOR, FLACC 0. PATIENT HAS WILSON CATHETER IN PLACE TO YELLOW URINE. HOB IS 30 DEGREES, NO SIGNS OF DISTRESS AT THIS TIME. SAFETY PRECAUTIONS ASSESSED AND ENFORCED, WILL CONTINUE TO MONITOR.
--- NOTE | 2018-08-07 07:10 | NUR ---
REPORT GIVEN TO MORNING RN.
[2018-08-07] MEDS: CARVEDILOL 12.5 MG TAB PO SCH ×2 (07:32→17:44)
[2018-08-07] MEDS: BLOOD GLUCOSE MONITORING 1 DEV DEV FS SCH ×4 (07:51→20:22)
--- NOTE | 2018-08-07 08:01 | NUR ---
DR. TEMPLE AND DR. HENDRICKS IN TO SEE AND ROUND ON PATIENT, UPDATED ON PATIENT'S CONDITION. WILL FOLLOW UP ON ANY ORDERS
[2018-08-07] MEDS: DOCUSATE SODIUM 100 MG GELCAP PO SCH (08:17)
[2018-08-07] MEDS: POTASSIUM CHLORIDE 20% 40 MEQ/15 ML UDC GT SCH (08:26)
[2018-08-07] MEDS: cefTRIAXone 2,000 MG in DEXTROSE 5% 100 ML IV SCH ×2 (08:26→20:42)
[2018-08-07] MEDS: LACTOBACILLUS RHAMNOSUS GG 1 EACH CAP PO SCH (08:27)
[2018-08-07] MEDS: PANTOPRAZOLE 40 MG INJ VIAL IVP SCH (08:27)
[2018-08-07] MEDS: FERROUS SULFATE 300 MG/5 ML UDC GT SCH (08:27)
[2018-08-07] MEDS: LISINOPRIL 20 MG TAB PO SCH (08:28)
--- NOTE | 2018-08-07 08:35 | NUR ---
PATIENT PLACED ON CPAP MODE, TUBE FEEDING HELD, FENTANYL HELD, PATIENT IS TOLERATING WELL. RT AT BEDSIDE
--- NOTE | 2018-08-07 08:40 | NUR ---
DR. COE IN TO SEE AND EXAMINE PATIENT, UPDATED ON PATIENT'S CONDITION. WILL FOLLOW UP ON ANY ORDERS.
[2018-08-07 09:35] LABS: HEMATOCRIT 23.8 % (36-48); HEMOGLOBIN 7.8 g/dL (12.0-16.0); MEAN CORPUSCULAR HEMOGLOBIN 29 pg (27-31); MEAN CORPUSCULAR HGB CONC 33 g/dL (33-37); MEAN CORPUSCULAR VOLUME 89.7 fL (80-94); PLATELET COUNT (AUTO) 405 K/uL (140-450); RED BLOOD CELL COUNT(AUTO) 2.65 MIL/uL (4.20-5.40); RED CELL DISTRIBUTION WIDTH 14.1 % (11.6-13.7); WHITE BLOOD COUNT (AUTO) 15.1 K/uL (4.8-10.8)
--- NOTE | 2018-08-07 09:40 | NUR ---
EXTUBATED PT WITHOUT INCIDENT PLACED 3L OXYMIZER SPO2 97
--- NOTE | 2018-08-07 09:40 | NUR ---
PATIENT EXTUBATED BY RT, TOLERATING WELL. NO SIGNS OF DISTRESS AT THIS TIME
[2018-08-07 10:07] LABS: BASOPHILS % (MANUAL) 0 % (0-2); EOSINOPHILS % (MANUAL) 0 % (0-4); LYMPHOCYTES % (MANUAL) 11 % (20-46); MONOCYTES % (MANUAL) 8 % (5-12)
--- NOTE | 2018-08-07 10:11 | NUR ---
08/07/18 RD FOLLOW UP COMPLETED PLEASE REFER TO NUTRITION PROGRESS NOTE UNDER CARE ACTIVITY FOR ESTIMATED NUTRITION NEEDS. RD RECOMMENDATIONS: 1.IF ABLE TO EXTUBATE, CONSIDER SWALLOW EVAL IF PO DIET IS APPROPRIATE & CONSIDER INITIATING PO CARDIAC DIET IN APPROPRIATE TEXTURES PER DIRECTOR OF MARKETING COMMUNICATIONS RECOMMENDATIONS. 2.IF UNABLE TO EXTUBATE & IF/WHEN MEDICALLY APPROPRIATE, CONSIDER RESUMING, VITAL AF 1.2 AT 30 ML/HR TOLERATED AND CONTINUE TO ADVANCE BY 10 ML Q4H UNTIL GOAL OF 55 ML/HR IS REACHED. CONTINU FLUSH 100 ML Q6H (FWF 400 ML TOTAL). ---- AT GOAL OF 55 ML/HR, TF VITAL AF 1.2 WILL PROVIDE 1320 ML, 1584 KCAL, AND 99 GM OF PROTEIN, WHICH MEETS 85% OF ESTIMATED KCAL NEEDS AND 100% OF ESTIMATED PROTEIN NEEDS; ADEQUATE. 3. RD TO FOLLOW-UP 2-3 DAYS, HIGH RISK. LEANNE CHAVARRIA, MS, RDN
[2018-08-07] MEDS: VANCOMYCIN 750 MG in DEXTROSE 5% 250 ML IV SCH ×2 (11:15→22:04)
[2018-08-07] MEDS: NACL 0.9% 1,000 ML IV SCH (11:17)
--- NOTE | 2018-08-07 11:26 | NUR ---
DR. HENDRICKS IN TO SEE PATIENT, AWARE THAT LAB CAME IN TO REDRAW BLOOD FOR CBC AND RESULTS ARE HGB 7.8 AND HCT 23.8, STATES TO HOLD BLOOD TRANSFUSION OF 1 UNIT FOR NOW.
--- NOTE | 2018-08-07 13:19 | NUR ---
PATIENT TURNED AND REPOSITIONED FOR COMFORT, NO SIGNS OF DISTRESS NOTED.
--- NOTE | 2018-08-07 16:20 | NUR ---
WILSON CARE PROVIDED, PATIENT TOLERATED WELL. TURNED AND REPOSITIONED FOR COMFORT. PATIENT MOANS AND SAYS INAPPROPRIATE WORDS. NO SIGNS OF DISTRESS
--- NOTE | 2018-08-07 18:39 | NUR ---
PATIENT TURNED AND REPOSITIONED FOR COMFORT, NO SIGNS OF DISTRESS NOTED.
--- NOTE | 2018-08-07 19:11 | NUR ---
ENDORSED CONTINUITY OF CARE TO MOTOR COACH TOUR OPERATOR RNDELONTE, NO SIGNS OF DISTRESS NOTED.
--- NOTE | 2018-08-07 19:25 | NUR ---
RECEIVED BEDSIDE REPORT FROM MORNING SHIFT, RNJUSTINO FOR CONTINUITY OF CARE. PT IS AWAKE, OPENS EYES SPONTANEOUSLY, NONVERBAL & DOES NOT RESPOND TO COMMANDS. PERRL, TEMP 99.2, EY=335, SATING 98%, RR=36-40. BP 146/82. LUNG SOUND CLEAR ON UPPER AND LOWER BILATERAL LOBES, ON FACIAL OXIMIZER AT 3ML/MIN. ST ON PRECIPITATOR OPERATOR. NGT IN PLACE, VITALS AF 1.2CAL AT 55ML/HR. WILSON CATHETER IN PLACE, URINE IS LIGHT YULY IN COLOR. RIGH IJ CENTRAL LINE, INFUSING NS AT 80ML/HR. SKIN IS INTACT, DRY, NORMAL IN COLOR. HOB ELEVATED LEGS ELEVATED WITH PILLOWS. STANDARD PRECAUTIONS MAINTAINED.
--- NOTE | 2018-08-07 20:40 | NUR ---
PT HAD SMALL GREEN, MUCUS LIKE STOOL. SAMPLE SENT FOR OCCULT BLOOD. DR. SINHA AT BEDSIDE TO SEE PATIENT. PT SCREAMS WHEN REPOSITIONING OR WHEN TOUCHING LEFT LEG, UNABLE TO COMMUNICATE SOURCE OF PAIN.
[2018-08-07] MEDS: TOPIRAMATE 25 MG TAB PO SCH (20:42)
[2018-08-07] MEDS: HYDROcodone/APAP 5/325 MG 1 TAB TAB PO PRN (20:51)
--- NOTE | 2018-08-07 20:56 | NUR ---
PRN NORCO GIVEN FOR PAIN. INFORMED PATIENT OF MED ADMINISTRATION FOR PAIN AND NODS HEAD, PT HEARD SAYING "HURRY UP, AND C'MON" WHEN PREPPING MEDICATION. TOLD PATIENT TO RELAX AND TRY TO GET SOME SLEEP, PT NODS HEAD AND APPEARS TO UNDERSTAND COMMANDS. MITTS PLACED ON BILATERAL HANDS FOR SAFETY.
--- NOTE | 2018-08-07 21:20 | NUR ---
INCREASED PT'S O2 TO 40% ON OXYMIZER DUE TO PT MOVING AROUND RESTLESSLY. SAT 94 HR 124 RR 26. BS BILATERALLY CLEAR. WILL CONT TO MONITOR PT.
--- NOTE | 2018-08-07 22:05 | NUR ---
PRN ATIVAN GIVEN, PT APPEARS RESTLESS MOVING ARMS. SPOKE WITH PATIENT OF MED BEING GIVEN, PT STATED "I WANT ONE."
--- NOTE | 2018-08-07 23:01 | NUR ---
PT SLEEPING, RESPIRATIONS = 45-50. ST, WI=[phone], BP = 137/68. SATING 94%.
--- NOTE | 2018-08-07 23:15 | NUR ---
INCREASED O2 TO 50% ON OXYMIZER DUE TO PT DESAT TO 90%. SAT 99 HR 121 RR 26. WILL CONT TO MONITOR PT.
[2018-08-08] VITALS (12 sets, daily range): BP systolic 108–163; BP diastolic 56–90
[2018-08-08] MEDS: ACETAMINOPHEN 325 MG TAB PO PRN ×3 (00:56→17:24)
--- NOTE | 2018-08-08 01:01 | NUR ---
TEMP 100.8, ICE PACK AND TYLENOL GIVEN. WILL CONTINUE TO MONITOR.
--- NOTE | 2018-08-08 01:15 | NUR ---
TITRATED OXYMIZER TO 6LPM. SAT 99 HR 118 RR 28. WILL CONT TO MONITOR PT.
--- NOTE | 2018-08-08 02:12 | NUR ---
REPOSITIONED PATIENT, AM CARE PROVIDED. MOANS IN PAIN WHEN TOUCHING LEFT LEG, BILATERAL LEGS APPEAR CONTRACTED. TEMP 99.6, COOL TOWEL APPLIED TO FOREHEAD. FRESH LINENS PROVIDED. TUBE FEEDING REMAINS AT 55ML, RESIDUAL OF 10ML, NS INFUSING AT 80ML/HR. Addendum: 08/08/18 at 0216 by Kenisha Amador RN HR 100 - 108, BP 112/56, RR = 40-45, SATING AT 100%
--- NOTE | 2018-08-08 03:17 | NUR ---
TITRATED OXYMIZER TO 4LPM. SAT 100 HR 100 RR 28. WILL CONT TO MONITOR PT.
--- NOTE | 2018-08-08 04:46 | NUR ---
PT SLEEPING, HR = 99-106 RESPIRATION, 40-49. TUBE FEEDING 55ML/HR, RESIDUAL <10ML. NS AT 80ML/HR INTO RIGHT IJ. PT IS AWAKE, APPEARS RELAXED DOES NOT RESPOND TO QUESTIONS.
[2018-08-08] MEDS: DILTIAZEM 30 MG TAB PO SCH ×4 (05:08→23:04)
--- NOTE | 2018-08-08 05:10 | NUR ---
TITRATED OXYMIZER TO 3LPM SAT 99 HR 105 RR 28-34. PT IN 0 RESP DISTRESS. WILL CONT TO MONITOR PT.
[2018-08-08 05:51] LABS: CARBON DIOXIDE 26.5 mmol/L (21-32); CREATININE 0.8 mg/dL (0.6-1.3); POTASSIUM 3.5 mmol/L (3.5-5.1)
[2018-08-08 05:54] LABS: MAGNESIUM 1.7 mg/dL (1.8-2.4); PHOSPHORUS 3.7 mg/dL (2.5-4.9)
--- NOTE | 2018-08-08 06:18 | NUR ---
PASTOR FROM LAB CALLED REPORTED CRITICAL LAB OF H&H, HGB=6.6, HCT=20.0. STATED THAT IT REQUIRES A REDRAW, WILL SEND A DIRECTOR OF AUDIOLOGY FOR VENOUS DRAW AFTER 7 AM.
--- NOTE | 2018-08-08 06:27 | NUR ---
DR. HENDRICKS AT BEDSIDE TO SEE PATIENT, UPDATED ON PATIENT CONDITION. INFORMED OF NEED FOR VENOUS REDRAW OF CRITICAL LOW H&H.
--- NOTE | 2018-08-08 06:39 | NUR ---
DR. ROSEN AT BEDSIDE UPDATED ON PT CONDITION.
[2018-08-08] MEDS: BLOOD GLUCOSE MONITORING 1 DEV DEV FS SCH ×4 (07:27→20:31)
--- NOTE | 2018-08-08 07:30 | NUR ---
RECEIVED REPORT FORM TYPESETTING MACHINE OPERATOR/TENDER NURSE AT BEDSIDE, PT OPEN EYES WHEN SHAKING, RESPOND TO PAINFUL STIMULI, MORNING AND NUMBERING WORDS, UNABLE TO FOLLOW COMMANDS, TEMP 101.1F, MD AWARE, CENTRAL LINE TO RIJ, TLC, RUNNING WITH NS AT 60 ML/HR, NGT TO RIGHT NARES, FEEDING WITH VITAL AF AT 55ML/HR, 10 ML RESIDUALS NOTED, LABORED BREATHING AND HYPERVENTILATION NOTED, CLEAR LUNG SOUNDS MARGO, ON OXYMIZER AT 3L/MIN, O2 SAT 93%, ST ON PROCED TECH NOTED, SOFT ABDOMEN WITH ACTIVE BOWEL SOUNDS, WILSON CATHETER IN PLACE WITH YULY CLEAR URINE VIA GRAVITY, GENERALIZED WEAKNESS AND CONTRACTURE TO LLE NOTED, SKIN IS WARM AND DRY TO TOUCH, NO OPEN WOUND PRESENT, FLACC 7, HOB ELEVATED, SAFETY MEASURES IN PLACE, WILL CONTINUE TO MONITOR.
--- NOTE | 2018-08-08 08:00 | NUR ---
NO CHANGE OF CONDITION, ORAL CARE PROVIDED, POSITION CHANGED FOR OFF LOAD PRESSURE.
[2018-08-08] MEDS: NACL 0.9% 1,000 ML IV SCH (08:16)
[2018-08-08] MEDS: LACTOBACILLUS RHAMNOSUS GG 1 EACH CAP PO SCH (08:17)
[2018-08-08] MEDS: FERROUS SULFATE 300 MG/5 ML UDC GT SCH (08:17)
[2018-08-08] MEDS: DOCUSATE SODIUM 100 MG GELCAP PO SCH (08:17)
[2018-08-08] MEDS: POTASSIUM CHLORIDE 20% 40 MEQ/15 ML UDC GT SCH (08:17)
[2018-08-08] MEDS: PANTOPRAZOLE 40 MG INJ VIAL IVP SCH (08:17)
[2018-08-08] MEDS: LISINOPRIL 20 MG TAB PO SCH (08:18)
[2018-08-08] MEDS: CARVEDILOL 12.5 MG TAB PO SCH ×2 (08:18→17:21)
[2018-08-08] MEDS: cefTRIAXone 2,000 MG in DEXTROSE 5% 100 ML IV SCH ×2 (08:22→20:32)
[2018-08-08] MEDS: MORPHINE SULFATE 4 MG/ML SYR IVP PRN ×4 (08:23→20:47)
[2018-08-08] MEDS ORDERED: MAG SULF 2000 MG/WATER PREMIX 50 ML IV SCH (08:34)
[2018-08-08 08:52] LABS: BASOPHILS % (AUTO) 0.2 % (0.0-2.0); EOSINOPHILS % (AUTO) 0.2 % (0.0-4.0); HEMATOCRIT 22.2 % (36-48); HEMOGLOBIN 7.3 g/dL (12.0-16.0); LYMPHOCYTES # (AUTO) 1.5 K/uL (2.5-16.5); MEAN CORPUSCULAR HEMOGLOBIN 29 pg (27-31); MEAN CORPUSCULAR HGB CONC 33 g/dL (33-37); MEAN CORPUSCULAR VOLUME 89.1 fL (80-94); MONOCYTES # (AUTO) 1.7 K/uL (0.8-1.0); MONOCYTES % (AUTO) 9.8 % (1.7-9.3); NEUTROPHILS # (AUTO) 13.8 K/uL (1.8-7.7); NEUTROPHILS % (AUTO) 80.8 % (42.2-75.2); PLATELET COUNT (AUTO) 456 K/uL (140-450); RED CELL DISTRIBUTION WIDTH 14.1 % (11.6-13.7); WHITE BLOOD COUNT (AUTO) 17.1 K/uL (4.8-10.8)
[2018-08-08] MEDS ORDERED: cefTRIAXone 2,000 MG in DEXTROSE 5% 100 ML IV SCH (09:00)
--- NOTE | 2018-08-08 09:00 | NUR ---
SCHEDULED MEDICATION GIVEN VIA NGT, PT TOLERATED WELL.
--- NOTE | 2018-08-08 10:00 | NUR ---
VSS, NO S/S OF DISTRESS, POSITION CHANGED FOR OFF LOAD PRESSURE.
--- NOTE | 2018-08-08 10:38 | NUR ---
CALLED TO ICU 8 DUE TO LOW O2SAT OF 85% INCREASED FIO2 TO 7L OXIMIZER AND ABG WAS ORDERED BY DR. ESPINAL. PT BREATHING 38 BPM AND VERY SWEATY PT WAS MORHINE BY ERIC PADILLA PER DR. ESPINAL PT WAS THEN PLACED ON NRB AT 15 L AND O2 SAT INCREASED TO 96% ABG RESULTS WERE GIVEN TO DR. ESPINAL AND DR. ROSEN PT WAS THEN PLACED ON VENTI MASK AT 15L 50% O2 SAT 92% RR 40 PT IS MOANING B\S ARE RHONCHI. BIPAP IS AT BEDSIDE. WILL CONTINUE TO WATCH PT.
[2018-08-08] MEDS: VANCOMYCIN 750 MG in DEXTROSE 5% 250 ML IV SCH ×2 (10:45→22:04)
--- NOTE | 2018-08-08 10:45 | NUR ---
PT IS WHEEZING, WORSENING LABORED BREATHING, HYPERVENTILATED, O2 SAT DROPPING TO 84%, RT NOTED, AND DR. ROSEN NOTICED.
--- NOTE | 2018-08-08 10:49 | NUR ---
X-RAY RESULT WITH ATELECTASIS VERSUS INFILTRATE, DR. ROSEN MADE AWARE.
[2018-08-08] MEDS: INSULIN LISPRO SLIDING SCALE 100 UNITS/ML VIAL SUBQ PRN ×2 (11:38→21:01)
--- NOTE | 2018-08-08 11:45 | NUR ---
DR. GRAYSON CAME IN TO SEE PT AT BEDSIDE, WILL FOLLOW UP WITH ORDERS.
[2018-08-08] MEDS: LORazepam 2 MG/ML VIAL IVP PRN (12:02)
[2018-08-08] MEDS ORDERED: CLINDAMYCIN PHOS 600MG/D5W PM 50 ML IV SCH (13:00)
--- NOTE | 2018-08-08 13:16 | NUR ---
UNBLE TO OBTAIN SPUTUM SAMPLE AT THIS TIME WILL ENDORSE TO FLUX CORE WELDER
--- NOTE | 2018-08-08 13:42 | NUR ---
DR. LUNA CAME IN TO SEE PT AT BEDSIDE, WILL FOLLOW UP WITH NEW ORDERS.
--- NOTE | 2018-08-08 14:00 | NUR ---
PT IS STILL MOANING, HYPERVENTILATED BREATHING, NO S/S OF DISTRESS, POSITION CHANGED FOR OFF LOAD PRESSURE.
--- NOTE | 2018-08-08 14:23 | NUR ---
CHART REVIEW DONE.
--- NOTE | 2018-08-08 15:09 | NUR ---
DECREASED VENTI TO 40% AT 12L O2 SAT 99% RN ARSALAN NOTIFIED OF CHANGES MADE
--- NOTE | 2018-08-08 16:00 | NUR ---
PM CARE AND F/C CARE PROVIDED, NO S/S OF DISTRESS, TEMP 101.2F, WILL MEDICATED, COOLING MEASURE IN USE, POSITION CHANGED FOR OFF LOAD PRESSURE.
[2018-08-08] MEDS ORDERED: GENTAMICIN PER PHARMACY MC PRN (17:05)
--- NOTE | 2018-08-08 18:00 | NUR ---
ELEVATED HR, STILL HYPERVENTILATED, DR. RUEDA MADE AWARE, MORPHINE GIVEN FOR PAIN, POSITION CHANGED FOR OFF LOAD PRESSURE.
--- NOTE | 2018-08-08 18:24 | NUR ---
SNF CAME IN FOR SWALLOW EVALUATION, NOT ABLE TO DO AT THIS TIME DUE TO PT'S CONDITION, WILL COME BACK TOMORROW.
--- NOTE | 2018-08-08 18:25 | NUR ---
* ST PVE NOTE * Clinician attempting to complete Bedside Dysphagia exam at this time w/Nsg, but Nsg reporting pt too medically unstable at this time, febrile w/desaturating 02, and advising clinician to re-attempt evaluation tomorrow. Clinician agreeable w/Nsg's recommendations. ST to re-attempt evaluation next day. PVE Time In/Out 18:10 - 18:25
[2018-08-08] MEDS: ALBUTEROL SULFATE/IPRATROPIU 3 ML SOL IH SCH (18:42)
[2018-08-08] MEDS ORDERED: GENTAMICIN 400 MG in DEXTROSE 5% 100 ML IV SCH (19:00)
--- NOTE | 2018-08-08 19:10 | NUR ---
SPUTUM SAMPLE WAS UPTAINED AND SENT TO LAB
--- NOTE | 2018-08-08 19:14 | NUR ---
REPORT GIVEN TO PASTRY MIXER NURSE FOR CONTINUE OF CARE, PT IS IN STABLE CONDITION AT THIS TIME.
--- NOTE | 2018-08-08 19:15 | NUR ---
RECEIVED REPORT FROM AM SHIFT. PT A0X1. FOLLOWS SIMPLE COMMANDS. RESPONDS TO VERBAL AND TACTILE STIMULI. EYES NON-TRACKING. ON NRB MASK 15L. WHEEZING NOTED BILATERALLY. SR ON MONITOR. NO EDEMA NOTED. ABD SOFT NONDISTENDED. NGT TO RIGHT NARE. NO RESIDUAL NOTED. F/C IN PLACE. CLEAR, YELLOW. BLADDER NONDISTENDED. IV SITE RIGHT IJ. PATENT INTACT. CONTRACTED BLE. BED IN LOWEST POSITION. CALL LIGHT WITHIN REACH. CONTINUE TO MONITOR. Addendum: 08/08/18 at 2320 by Rik Allen RN VENTURI MASK 15L 50% O2.
[2018-08-08 19:36] LABS: APPEARANCE,URINE CLEAR (CLEAR); BILIRUBIN,URINE NEGATIVE (NEGATIVE); BLOOD, URINE NEGATIVE (NEGATIVE); COLOR,URINE YELLOW (YELLOW); LEUKOCYTE ESTERASE ,URINE NEGATIVE (NEGATIVE); NITRITE, URINE NEGATIVE (NEGATIVE); PH,URINE 6.5 (5.0-9.0); UGLUCOSE NEGATIVE (NEGATIVE)
--- NOTE | 2018-08-08 19:36 | NUR ---
LAB AT BEDSIDE AT THIS TIME FOR BLOOD CULTURE COLLECTION.
--- NOTE | 2018-08-08 20:18 | NUR ---
PT REPOSITIONED AT THIS TIME. SMEAR BM NOTED. TEMP AT 100.2 COOLING MEASURES PROVIDED.
[2018-08-08] MEDS: TOPIRAMATE 25 MG TAB PO SCH (20:31)
--- NOTE | 2018-08-08 20:45 | NUR ---
DR. SINHA AT BEDSIDE AT THIS TIME. UPDATED ON PTS CURRENT CONDITION.
--- NOTE | 2018-08-08 23:33 | NUR ---
RT AT BEDSIDE AT THIS TIME.
[2018-08-09] VITALS (8 sets, daily range): BP systolic 105–147; BP diastolic 59–83
[2018-08-09] MEDS: MORPHINE SULFATE 4 MG/ML SYR IVP PRN ×2 (00:28→04:33)
--- NOTE | 2018-08-09 00:37 | NUR ---
PT REPOSITIONED AT THIS TIME TO LEFT SIDE. NO SIGNS OF ACUTE DISTRESS NOTED. AFEBRILE.
--- NOTE | 2018-08-09 01:06 | NUR ---
RT AT BEDSIDE AT THIS TIME
[2018-08-09] MEDS: ALBUTEROL SULFATE/IPRATROPIU 3 ML SOL IH SCH ×4 (01:08→18:27)
--- NOTE | 2018-08-09 01:15 | NUR ---
DID NOT DO CPT AT THIS TIME. PT IS ASLEEP AND DID NOT WANT TO DISTURB.PT BS ARE CLEAR POST HHNTX
--- NOTE | 2018-08-09 04:22 | NUR ---
PT ACTS RESTLESS. FLACC 7 NOTED. ADMINISTERED MORPHINE IVP.
--- NOTE | 2018-08-09 04:37 | NUR ---
SPOKE WITH DR. MCKEON TO INFORM OF GENTAMYCIN LEVEL 3.6
--- NOTE | 2018-08-09 04:42 | NUR ---
SPOKE WITH FROM PHARMACY TO INFORM OF RANDOM GENTAMYCIN LEVEL 3.6
--- NOTE | 2018-08-09 04:45 | NUR ---
TEMP 101.3 AT THIS TIME. ADMINISTERED TYLENOL AT THIS TIME
[2018-08-09] MEDS: ACETAMINOPHEN 325 MG TAB PO PRN ×2 (04:49→14:03)
--- NOTE | 2018-08-09 05:35 | NUR ---
LAB AT BEDSIDE AT THIS TIME
[2018-08-09] MEDS: DILTIAZEM 30 MG TAB PO SCH ×3 (05:48→17:32)
[2018-08-09] MEDS: NACL 0.9% 1,000 ML IV SCH ×2 (06:20→23:57)
[2018-08-09] MEDS: BLOOD GLUCOSE MONITORING 1 DEV DEV FS SCH ×4 (06:32→21:21)
--- NOTE | 2018-08-09 06:36 | NUR ---
RT AT BEDSIDE AT THIS TIME
--- NOTE | 2018-08-09 06:42 | NUR ---
DR. ROSEN AT BEDSIDE AT THIS TIME. UPDATED ON PT CURRENT CONDITION. WILL CONTINUE TO FOLLOW UP ANY ADDITIONAL ORDERS.
--- NOTE | 2018-08-09 07:16 | NUR ---
ENDORSED CARE TO INCOMING SHIFT FOR CONTINUITY OF CARE. BED IN LOWEST POSITION. SIDERAILS UP X4. NO SIGNS OF ACUTE DISTRESS NOTED.
--- NOTE | 2018-08-09 07:17 | NUR ---
RECEIVED REPORT FROM MARIAN REYES
--- NOTE | 2018-08-09 08:00 | NUR ---
PATIENT IS AWAKE, EYES OPENING SPONTANEOUSLY. PATIENT VERBALIZED "MA'AM MA'AM" BUT WILL NOT ANSWER WHEN RN ASKED IF SHE NEEDS HELP, IF SHE CAN STATE HER NAME ETC. LOCALIZES TO PAIN, BOTH LEGS UP TOWARDS CHEST, WILL NOT OBEY COMMANDS. SINUS RHYTHM ON MONITOR 93 BPM, ON VENTURI MASK FIO2 50% O2 15 L/MIN SO2 100% NOT IN RESPIRATORY DISTRESS, WITH NGT AT RIGHT NARES VITAL AF ENTERAL FEEDING ONGOING AT 55 ML/HR., NO ASPIRATES, WITH WILSON CATHETER TO UROMETER CLEAR YELLOW URINE NOTED, SKIN INTACT, WITH RIGHT IJ TRIPLE LUMEN CENTRAL LINE WITH NORMAL SALINE INFUSING AT 50 ML/HR. KEEP HEAD OF BED UP 30 DEGREES, CALL MACIEL WITHIN REACH, BED IN LOW POSITION
[2018-08-09 08:38] LABS: ANION GAP 13.3 (8-16); CARBON DIOXIDE 24.6 mmol/L (21-32); CREATININE 0.8 mg/dL (0.6-1.3); POTASSIUM 3.9 mmol/L (3.5-5.1)
[2018-08-09] MEDS: CARVEDILOL 12.5 MG TAB PO SCH ×2 (08:41→17:32)
[2018-08-09] MEDS: DOCUSATE SODIUM 100 MG GELCAP PO SCH (08:41)
[2018-08-09] MEDS: LACTOBACILLUS RHAMNOSUS GG 1 EACH CAP PO SCH (08:42)
[2018-08-09] MEDS: PANTOPRAZOLE 40 MG INJ VIAL IVP SCH (08:42)
[2018-08-09] MEDS: FERROUS SULFATE 300 MG/5 ML UDC GT SCH (08:42)
[2018-08-09] MEDS: cefTRIAXone 2,000 MG in DEXTROSE 5% 100 ML IV SCH ×2 (08:43→20:58)
[2018-08-09] MEDS: POTASSIUM CHLORIDE 20% 40 MEQ/15 ML UDC GT SCH (08:43)
--- NOTE | 2018-08-09 08:53 | NUR ---
PATIENT HAS BEEN SEEN BY REGISTERED DIETITIAN PREVIOUSLY. FNS CONSULT HAS BEEN RECEIVED FOR MALNUTRITION. RD WILL FOLLOW UP ON PATIENT WITHIN 1-[address]
[2018-08-09] MEDS ORDERED: VANCOMYCIN PER PHARMACY MC PRN (09:25)
[2018-08-09] MEDS: LISINOPRIL 20 MG TAB PO SCH (09:32)
[2018-08-09 09:34] LABS: BASOPHILS % (AUTO) 0.3 % (0.0-2.0); EOSINOPHILS # (AUTO) 0.1 K/uL (0-0.4); EOSINOPHILS % (AUTO) 0.5 % (0.0-4.0); LYMPHOCYTES # (AUTO) 1.9 K/uL (2.5-16.5); LYMPHOCYTES % (AUTO) 10.6 % (20.5-51.1); MEAN CORPUSCULAR HEMOGLOBIN 29 pg (27-31); MEAN CORPUSCULAR HGB CONC 32 g/dL (33-37); MEAN CORPUSCULAR VOLUME 90.2 fL (80-94); MONOCYTES # (AUTO) 1.4 K/uL (0.8-1.0); MONOCYTES % (AUTO) 8.2 % (1.7-9.3); NEUTROPHILS # (AUTO) 14.1 K/uL (1.8-7.7); NEUTROPHILS % (AUTO) 80.4 % (42.2-75.2); PLATELET COUNT (AUTO) 486 K/uL (140-450); RED BLOOD CELL COUNT(AUTO) 2.26 MIL/uL (4.20-5.40); RED CELL DISTRIBUTION WIDTH 14.6 % (11.6-13.7); WHITE BLOOD COUNT (AUTO) 17.5 K/uL (4.8-10.8)
[2018-08-09 09:42] LABS: HEMATOCRIT 20.4 % (36-48); HEMOGLOBIN 6.5 g/dL (12.0-16.0)
--- NOTE | 2018-08-09 09:43 | NUR ---
DR. DUENAS AT BEDSIDE HE WANTS TO CORRECT MG LEVEL 1.8 AND ORDERED 2 GMS MGSO4 IV, AND GIVE PACKED CELLS 2 PACKS HGB 6.5
[2018-08-09] MEDS ORDERED: MAG SULF 2000 MG/WATER PREMIX 50 ML IV SCH (10:00)
--- NOTE | 2018-08-09 10:12 | NUR ---
SWALLOWING EVALUATION [facility] AT BEDSIDE AND RECOMMENDED PATIENT CAN HAVE WATER WITH STRAW AND PUREED DIET
--- NOTE | 2018-08-09 10:25 | NUR ---
*S.T. Bedside swallow eval completed* Please see report for details. Pt presents with mild oral phase dysphagia for textures given. Solids, however, were not given due to pt's poor mental status. No overt s/s aspiration were observed with p.o. trials. Recommend advance to pureed diet, thin liquids okay with controlled straw sips. Pt is impulsive and requires 1:1 feeder with aspiration precautions. Advance diet as tolerated. No further tx indicated at this time as pt does not demonstrate dysphagia requiring skilled treatment. Endorsed to ERIC Herrera. Time: [id number] CJ [id number] CJ [id number] [facility] NOMS LEVEL 3
--- NOTE | 2018-08-09 11:21 | NUR ---
VANCOMYCIN TROUGH STILL PENDING RESULT
[2018-08-09] MEDS: INSULIN LISPRO SLIDING SCALE 100 UNITS/ML VIAL SUBQ PRN ×3 (11:49→21:24)
[2018-08-09] MEDS: VANCOMYCIN 750 MG in DEXTROSE 5% 250 ML IV SCH (11:52)
--- NOTE | 2018-08-09 12:15 | NUR ---
PATIENT HEAD OF BED AT 90 DEGREES UP AND BEING FED WITH APPLE SAUCE AND PUDDING 1 CUP EACH AND SHE TOLERATED. PATIENT ALLOWED TO HOLD 1 CARTON OF MILK WHILE DRINKING IT AND SHE WAS ABLE TO DO IT WITHOUT ANY ISSUES
--- NOTE | 2018-08-09 12:20 | NUR ---
FOLLOWED UP BLOOD BANK AND ORDERED PACKED CELLS STILL NOT READY
--- NOTE | 2018-08-09 13:26 | NUR ---
NTS FOR MEDICAL APPOINTMENT CLERK SPECIMEN PT WILL NOT WEAR VENTURI MASK CHANGE TO 3 L OXYMIZER SPO2 [id number]
--- NOTE | 2018-08-09 13:35 | NUR ---
CHART REVIEW DONE.
--- NOTE | 2018-08-09 13:45 | NUR ---
DR. SINHA AT BEDSIDE UPDATED OF PATIENT'S STATUS AND ALSO THE ON AND OFF FEVER. NO NEW ORDERS RECEIVED
--- NOTE | 2018-08-09 14:20 | NUR ---
INFORMED DR. ROSEN PATIENT'S TEMPERATURE 101F AND PATIENT IS FOR BLOOD TRANSFUSION RIGHT NOW, PRN TYLENOL GIVEN. PER DR. ROSEN OK TO CONTINUE WITH BLOOD TRANSFUSION WITH CURRENT TEMPERATURE
--- NOTE | 2018-08-09 15:05 | NUR ---
1ST BAG OF PACKED CELL BLOOD TRANSFUSION STARTED AFTER 2ND VERIFICATION WITH ERIC BLAIR WILL CONTINUE TO MONITOR. COOL SPONGE BATH, CATHETER CARE AND ROUTINE REPOSITIONING DONE- PATIENT TOLERATED Addendum: 08/09/18 at 1901 by Sharon Mooney RN VITAL SIGNS AT THIS TIME 131/72, 115 BPM, 30 CPM, TEMP. 100.3F ORAL
--- NOTE | 2018-08-09 18:05 | NUR ---
PACKED CELL TRANSFUSION ENDED. PATIENT TOLERATED THE PROCEDURE Addendum: 08/09/18 at 1900 by Sharon Mooney RN VITAL SIGNS AT THIS TIME 159/98, 104 BPM, 24 CPM, TEMP. 99 F ORAL SO2 100%
[2018-08-09] MEDS ORDERED: ACETAMINOPHEN 325 MG TAB PO ONE (19:00)
[2018-08-09] MEDS ORDERED: GENTAMICIN 400 MG in DEXTROSE 5% 100 ML IV SCH (19:00)
--- NOTE | 2018-08-09 19:00 | NUR ---
STARTED ADMINISTERING 1900 HOUR DUE GENTAMICIN. PATIENT IS ON ROOM AIR S02 100%, STILL NOT OBEYING COMMANDS BUT ALERT, NOT ON ANY DISTRESS
--- NOTE | 2018-08-09 20:00 | NUR ---
Report given to Night ERIC Sandoval Patient is for 2nd unit packed cell transfusion. Belongings brought with patient. Addendum: 08/09/18 at 2017 by Sharon Mooney RN 1999hours Heart rate 113bpm, bp 170/92 SO2 96% on room air Addendum: 08/09/18 at 2018 by Sharon Mooney RN 1999hours Patient transferred to telemetry and report given to ERIC Sandoval
--- NOTE | 2018-08-09 20:01 | NUR ---
RECEIVED PT FROM ICU NURSE IN STABLE CONDITION. P. IS AWAKE,BUT CONFUSED. WITH IVF TO START ON THE RT INTERNAL JUGULAR CENTRAL LINE . BLUE PORT IS PATENT WITH BLOOD RETURN AFTER FLUSHED WITH NS. WHITE PORT PATENT BUT NO BLOOD RETURN. BROWN PORT NOT FLUSHING WELL. PT ON TELE BED. -ST. BEDREST. WITH WILSON CATHETER DRAINING TO YELLOW COLORED URINE. SKIN INTACT. O2 SAT 94% ON ROOM AIR. NO DISTRESS NOTED. BED ON LOW POSITION. FREQUENT ROUNDS NEEDED. BED ALARM ON.CALL LIGHT PLACED WITHIN EASY REACH. WILL CONTINUE TO MONITOR.
--- NOTE | 2018-08-09 20:15 | NUR ---
TALKED TO DR. MCKEON FOR PT TEMP IS 102.6. HE SAID NOT TO GIVE THE 2ND UNIT OF PRBC AT THIS TIME. ICU NURSE JUST GAVE TYLENOL PRIOR TO TRANSFERRING HERE IN THE FLOOR . WILL GIVE A COOLING MEASURES.
--- NOTE | 2018-08-09 20:15 | NUR ---
ICU NURSE CALLED AND SAID PT WAS GIVEN TYLENOL FOR FEVER PRIOR TO TRANSFER TO FLOOR.
[2018-08-09] MEDS ORDERED: KETOROLAC 15 MG/ML VIAL IVP ONE (21:00)
--- NOTE | 2018-08-09 21:00 | NUR ---
FERNANDA LIVINGSTON 100/ ORALLY. WILL STILL CONTINUE TO MONITOR. Addendum: 08/10/18 at 0235 by Dorina Meyer RN TEM 100.1
[2018-08-09] MEDS: TOPIRAMATE 25 MG TAB PO SCH (21:07)
--- NOTE | 2018-08-09 21:24 | NUR ---
BLOOD SUGAR WAS CHECKED RESULT 160. INSULIN COVERAGE GIVEN ORDERED. PT HAD SOME APPLESAUCE.
--- NOTE | 2018-08-09 22:40 | NUR ---
TEMP RECHECKED AGAIN ORALLY RESULT 98.4 WILL NEED TO TRANSFUSE I UNIT PRBC.
[2018-08-09] MEDS: VANCOMYCIN 500 MG in DEXTROSE 5% 100 ML IV SCH ×2 (22:45→23:00)
[2018-08-10] VITALS (8 sets, daily range): BP systolic 127–163; BP diastolic 72–93
--- NOTE | 2018-08-10 00:10 | NUR ---
2ND UNIT OF PRBC STARTED AFTER VERIFIED WITH ANOTHER RN,FRANCIS WITH THE PT. VITAL SIGNS TAKE PRIOR TO STARTING THE BLOOD. PT IS AFEBRILE. WILL CONTINUE TO MONITOR PT FOR ANY REACTION TO BLOOD TRANSFUSION.
[2018-08-10] MEDS: DILTIAZEM 30 MG TAB PO SCH ×5 (00:54→23:54)
[2018-08-10] MEDS: ALBUTEROL SULFATE/IPRATROPIU 3 ML SOL IH SCH ×4 (01:00→19:29)
--- NOTE | 2018-08-10 02:25 | NUR ---
BLOOD TRANSFUSION STILL GOING ON. NO REACTION TO THE BLOOD AT THIS TIME.
--- NOTE | 2018-08-10 05:11 | NUR ---
HR 115 IN THE MONITOR. CHECKED ON PT . TEMP RECHECKED 103.1 ORAL. WILL ALSO DO SOME COOLING MEASURE
[2018-08-10] MEDS: ACETAMINOPHEN 325 MG TAB PO PRN ×2 (05:14→14:50)
--- NOTE | 2018-08-10 05:45 | NUR ---
BLOOD WAS DRAWN ON THE RT IJ CENTRAL LINE BLUE PORT. WILL FOLLOW UP RESULTS.
[2018-08-10 05:56] LABS: BASOPHILS % (AUTO) 0.2 % (0.0-2.0); EOSINOPHILS # (AUTO) 0.1 K/uL (0-0.4); EOSINOPHILS % (AUTO) 0.3 % (0.0-4.0); HEMATOCRIT 28.3 % (36-48); HEMOGLOBIN 9.4 g/dL (12.0-16.0); LYMPHOCYTES # (AUTO) 1.3 K/uL (2.5-16.5); LYMPHOCYTES % (AUTO) 6.8 % (20.5-51.1); MEAN CORPUSCULAR HEMOGLOBIN 29 pg (27-31); MEAN CORPUSCULAR HGB CONC 33 g/dL (33-37); MEAN CORPUSCULAR VOLUME 88.7 fL (80-94); MONOCYTES # (AUTO) 1.4 K/uL (0.8-1.0); MONOCYTES % (AUTO) 7.4 % (1.7-9.3); NEUTROPHILS # (AUTO) 16.5 K/uL (1.8-7.7); NEUTROPHILS % (AUTO) 85.3 % (42.2-75.2); PLATELET COUNT (AUTO) 507 K/uL (140-450); RED BLOOD CELL COUNT(AUTO) 3.18 MIL/uL (4.20-5.40); RED CELL DISTRIBUTION WIDTH 14.3 % (11.6-13.7); WHITE BLOOD COUNT (AUTO) 19.3 K/uL (4.8-10.8)
[2018-08-10] MEDS: BLOOD GLUCOSE MONITORING 1 DEV DEV FS SCH ×4 (06:09→20:56)
--- NOTE | 2018-08-10 06:30 | NUR ---
LATEST TEMP 98.5 ORALLY. WILL ENDORSE TO AM NURSE.
[2018-08-10] MEDS: VANCOMYCIN 500 MG in DEXTROSE 5% 100 ML IV SCH ×3 (06:34→22:28)
--- NOTE | 2018-08-10 07:25 | NUR ---
PT PULLED OUT RT IJ CENTRAL LINE. TIP IS INTACT. CALLED RESIDENT DR. ESPINAL AND SAID OK TO SEND THE TIP TO LAB FOR CULTURE . WILL ENDORSE TO AM NURSE.
--- NOTE | 2018-08-10 07:30 | NUR ---
ERIC MONTALVOSUPERVISOR PHOSPHORUS PROCESSING STARTED A NEW IV ACCESS ON THE RT FA#20. AM NURSE AWARE.
--- NOTE | 2018-08-10 07:35 | NUR ---
RECEIVED BEDSIDE REPORT FROM TEACHER OF THE VISUALLY IMPAIRED RN. AOX1. ABLE TO FOLLOW SIMPLE COMMANDS. NO C/O PAIN AND DISCOMFORT. FLACC 0. PT ON TELE. SKIN INTACT. IV SITE PATENT AND ASYMPTOMATIC, INFUSING ABX PER MD ORDERS. PER TEACHER OF THE VISUALLY IMPAIRED RN, PT PULLED OUT CENTRAL LINE, DRESSING OVER SITE C/D/I. WILSON CATH IN PLACE, DRAINING URINE. ASPIRATION AND SEIZURES IN PLACE. ALL OTHER SAFETY PRECAUTIONS IN PLACE, WILL CONTINUE TO MONITOR.
--- NOTE | 2018-08-10 08:24 | NUR ---
ORDER PLACED FOR CULTURE OF CENTRAL LINE CATHETER THAT HAD BEEN PULLED OUT. PER COMBATANT DIVER QUALIFIED RN, SHE ALREADY SENT SAMPLE TO LAB.
[2018-08-10 08:35] LABS: MAGNESIUM 1.7 mg/dL (1.8-2.4); PHOSPHORUS 3.5 mg/dL (2.5-4.9)
[2018-08-10 08:40] LABS: ANION GAP 13.4 (8-16); CARBON DIOXIDE 26.2 mmol/L (21-32); POTASSIUM 3.6 mmol/L (3.5-5.1)
[2018-08-10 08:41] LABS: CREATININE 0.8 mg/dL (0.6-1.3)
[2018-08-10] MEDS ORDERED: POTASSIUM CHLORIDE 20% 40 MEQ/15 ML UDC NG SCH (09:00)
[2018-08-10] MEDS ORDERED: FERROUS SULFATE 300 MG/5 ML UDC NG SCH (09:00)
[2018-08-10] MEDS: FERROUS SULFATE 300 MG/5 ML UDC PO SCH (09:03)
[2018-08-10] MEDS: POTASSIUM CHLORIDE 20% 40 MEQ/15 ML UDC PO SCH (09:04)
[2018-08-10] MEDS: DOCUSATE SODIUM 100 MG GELCAP PO SCH (09:04)
[2018-08-10] MEDS: CARVEDILOL 12.5 MG TAB PO SCH ×2 (09:04→17:20)
[2018-08-10] MEDS: PANTOPRAZOLE 40 MG INJ VIAL IVP SCH (09:04)
[2018-08-10] MEDS: LACTOBACILLUS RHAMNOSUS GG 1 EACH CAP PO SCH (09:04)
[2018-08-10] MEDS: LISINOPRIL 20 MG TAB PO SCH (09:04)
[2018-08-10] MEDS: cefTRIAXone 2,000 MG in DEXTROSE 5% 100 ML IV SCH (09:05)
--- NOTE | 2018-08-10 09:19 | NUR ---
PHYSICAL THERAPY EVAL IN PROGRESS.
--- NOTE | 2018-08-10 10:21 | NUR ---
PER LAB, INDUCED SPUTUM SAMPLE IS CONTAMINATED. INFORMED RT BILL TO OBTAIN NEW SPUTUM SAMPLE.
[2018-08-10] MEDS ORDERED: MAG SULF 2000 MG/WATER PREMIX 50 ML IV SCH (12:00)
[2018-08-10] MEDS: FLUCONAZOLE 200 MG/NS PREMIX 100 ML IV SCH (12:02)
[2018-08-10] MEDS: INSULIN LISPRO SLIDING SCALE 100 UNITS/ML VIAL SUBQ PRN (12:20)
--- NOTE | 2018-08-10 13:30 | NUR ---
PATIENT REFUSED LUNCH.
--- NOTE | 2018-08-10 13:44 | NUR ---
NO IV COMPATIBILITY INFO AVAILABLE ON [facility] FOR MAG RIDER AND MERREM. 0.8 HOURS LEFT TO INFUSE MAG RIDER. ONLY ONE IV SITE AVAILABLE. WILL START MERREM AFTER MAG RIDER FINISHES.
[2018-08-10] MEDS: MEROPENEM 1,000 MG in NACL 0.9% 100 ML IV SCH ×2 (14:35→20:43)
--- NOTE | 2018-08-10 14:35 | NUR ---
ALL IV MEDICATIONS DURING THIS SHIFT INFUSED THROUGH RIGHT FA 20G. CENTRAL LINE WAS REMOVED BY TRAY LINE SUPERVISOR RN AT 0730.
--- NOTE | 2018-08-10 14:46 | NUR ---
08/10/18 RD FOLLOW UP COMPLETED PLEASE REFER TO NUTRITION ASSESSMENT UNDER CARE ACTIVITY FOR ESTIMATED NUTRITIONAL NEEDS. 1. CONTINUE CARDIAC PUREE DIET WITH NECTAR THICK LIQUIDS TOLERATED 2. IF PT�S PO INTAKE IS <50%, CONSIDER SUPPLEMENTING DIET WITH PROSOURCE TID 3. RD TO FOLLOW-UP 2-3 DAYS, HIGH RISK EDMOND MORENO RD
--- NOTE | 2018-08-10 14:50 | NUR ---
ADMINISTERED TYLENOL FOR ORAL TEMP 100.8 F. COOLING MEASURES APPLIED.
--- NOTE | 2018-08-10 15:48 | NUR ---
IV ABX ADMINISTERED SCHEDULED. FLACC 0. WILL CONTINUE TO MONITOR.
--- NOTE | 2018-08-10 15:50 | NUR ---
ORAL TEMP IS 98.3 F, ONE HOUR AFTER TYLENOL ADMINISTRATION.
--- NOTE | 2018-08-10 16:38 | NUR ---
PT RESTING IN BED, AROUSABLE BY VOICE. ALL SAFETY PRECAUTIONS IN PLACE, WILL CONTINUE TO MONITOR.
--- NOTE | 2018-08-10 17:21 | NUR ---
CHART REVIEW DONE.
--- NOTE | 2018-08-10 19:25 | NUR ---
ENDORSED POC TO HEAT CURER RN. PT IN STABLE CONDITION.
--- NOTE | 2018-08-10 19:26 | NUR ---
RECEIVED REPORT ON PT FROM AM NURSE, ON STABLE CONDITION. BEDREST. WITH NO ACUTE DISTRESS NOTED. WITH OCCASIONAL NON PRODUCTIVE COUGH . GETTING BREATHING TREATMENT. O2 SAT 98%-99% ON ROOM AIR. STILL WITH CONFUSION. WITH BED ON LOWEST POSITION. SIDE RAILS UP .NEEDING FREQUENT ROUNDS. CALL LIGHT PLACED WITHIN EASY REACH. HAS IVF INFUSING WELL ON THE RT FA G#20. CLEAR AND PATENT. WILSON CATHETER TO GRAVITY. DRAINING WELL TO CLEAR YELLOWISH COLOR URINE . NEED REINFORCEMENT IN GIVING TEACHING DUE TO CONFUSION. WILL CONTINUE TO MONITOR.
[2018-08-10] MEDS: TOPIRAMATE 25 MG TAB PO SCH (20:44)
[2018-08-10] MEDS: NACL 0.9% 1,000 ML IV SCH (20:47)
--- NOTE | 2018-08-10 20:56 | NUR ---
BLOOD SUGAR CHECKED RESULT 130. NO INSULIN NEEDED. PT HAD SOME PUDDING ANG MASHES POTATO. TOLERATED WELL.
[2018-08-10] MEDS: MORPHINE SULFATE 4 MG/ML SYR IVP PRN (22:46)
--- NOTE | 2018-08-10 22:46 | NUR ---
PT RR 30/MIN. LOOKED UNCOMFORTABLE. SHE SAID SHE WANTS A SHOT. BP 166/99,HR-94 TEMP 98.1 O2 SAT 95% ROOM AIR. MEDICATED WITH MORPHINE 2 MG IVP PRN. WILL CONTINUE TO MONITOR.
--- NOTE | 2018-08-10 23:42 | NUR ---
CHECKED ON PT. PT IS TACHYPNIC. PT LOOKS COMFORTABLE AND ASLEEP. DR ROA AWARE. SPO2 95% RA. MONITORING PT.
[2018-08-11] VITALS (9 sets, daily range): BP systolic 109–171; BP diastolic 72–98
--- NOTE | 2018-08-11 00:11 | NUR ---
ABG DONE WITH NO INCIDENT. RESULTS GIVEN AND REVIEWED BY MD MCKEON. PLACED PATIENT ON 3 L OXYMIZER FOR LOW PAO2 AND INCREASED WOB. PT'S PO2 REMAINS 97%. RN NIKO AT BEDSIDE. WILL CONTINUE TO MONITOR.
[2018-08-11] MEDS: ALBUTEROL SULFATE/IPRATROPIU 3 ML SOL IH SCH ×4 (00:27→19:45)
--- NOTE | 2018-08-11 00:31 | NUR ---
PT KEEPS TAKING OF OXYGEN. HHN TX GIVEN NOW. RN NIKO AT BEDSIDE. WILL CONTINUE TO MONITOR.
--- NOTE | 2018-08-11 02:00 | NUR ---
PT IS ASLEEP. NO SOB NOTED. O23L BY OXYMIZER ON. RESPIRATION 22/MIN. WILL CONTINUE TO MONITOR.
--- NOTE | 2018-08-11 03:14 | NUR ---
PT ASLEEP COMFORTABLY. NO DISTRESS NOTED. WILL CONTINUE TO MONITOR.
[2018-08-11] MEDS ORDERED: LABETALOL 100 MG/20 ML VIAL IV SCH (03:30)
--- NOTE | 2018-08-11 03:59 | NUR ---
BP ELEVATE 171/94, HR-93,R-30,O2 SAT 1005 ON O23L BY OXYMIZER, TEMP 98.9 MADE AWARE WITH ORDER. LABETALOL 20 MG IVP GIVEN ONCE. WILL CONTINUE TO MONITOR.
[2018-08-11] MEDS ORDERED: LABETALOL 100 MG/20 ML VIAL ONE (04:00)
[2018-08-11] MEDS: MEROPENEM 1,000 MG in NACL 0.9% 100 ML IV SCH ×3 (04:23→20:16)
--- NOTE | 2018-08-11 04:59 | NUR ---
LATEST BP 151/85, HR -89 AFTER THE LABETALOL IVP. WILL CONTINUE TO MONITOR.
[2018-08-11] MEDS: BLOOD GLUCOSE MONITORING 1 DEV DEV FS SCH ×4 (05:48→20:16)
[2018-08-11] MEDS: DILTIAZEM 30 MG TAB PO SCH ×4 (05:55→23:34)
--- NOTE | 2018-08-11 06:00 | NUR ---
BLOOD SUGAR THIS AM IS 103. NO INSULIN NEEDED.
[2018-08-11] MEDS: VANCOMYCIN 500 MG in DEXTROSE 5% 100 ML IV SCH ×3 (06:15→22:58)
[2018-08-11] MEDS ORDERED: GENTAMICIN PER PHARMACY MC PRN (06:30)
[2018-08-11 06:34] LABS: BASOPHILS % (AUTO) 0.2 % (0.0-2.0); EOSINOPHILS # (AUTO) 0.1 K/uL (0-0.4); EOSINOPHILS % (AUTO) 0.3 % (0.0-4.0); HEMATOCRIT 29.9 % (36-48); HEMOGLOBIN 9.8 g/dL (12.0-16.0); LYMPHOCYTES # (AUTO) 1.1 K/uL (2.5-16.5); MEAN CORPUSCULAR HEMOGLOBIN 29 pg (27-31); MEAN CORPUSCULAR HGB CONC 33 g/dL (33-37); MEAN CORPUSCULAR VOLUME 89.5 fL (80-94); MONOCYTES # (AUTO) 1.2 K/uL (0.8-1.0); MONOCYTES % (AUTO) 7.7 % (1.7-9.3); NEUTROPHILS # (AUTO) 13.2 K/uL (1.8-7.7); NEUTROPHILS % (AUTO) 84.8 % (42.2-75.2); PLATELET COUNT (AUTO) 589 K/uL (140-450); RED BLOOD CELL COUNT(AUTO) 3.35 MIL/uL (4.20-5.40); WHITE BLOOD COUNT (AUTO) 15.6 K/uL (4.8-10.8)
[2018-08-11] MEDS ORDERED: GENTAMICIN IV SCH (07:00)
[2018-08-11] MEDS ORDERED: DEXTROSE 5% IV SCH (07:00)
--- NOTE | 2018-08-11 07:25 | NUR ---
SIDE RAILS ARE PADDED FOR SEIZURE PRECAUTION. ENDORSED PT IN STABLE CONDITION TO AM NURSE.
--- NOTE | 2018-08-11 07:26 | NUR ---
RECEIVED REPORT FROM PM NURSE AT BEDSIDE. PT IS SEVERELY CONFUSED, NO VERBAL CONVERSATION. PT SLEEPING ON HE BED, HAS THE IV ON HER RT FA 22 G. IVF NS INFUSING WELL. PT IS ON ABX TREATMENT. ON FALL RISK AND SEIZURE PRECAUTION. HAS FC ALREADY IN PL;BARBARA. PT . CALL LIGHT WITHIN REACH. INTRODUCED SELF AND UPDATE BOARD. PT ON FALL RISK . NO SIGN OF DISTRESS NOTED. PT SLEEPING AT THIS TIME. WILL CONTINUE TO MONITOR PT.
--- NOTE | 2018-08-11 08:30 | NUR ---
RECEIVED PATIENT ROOM AIR. 02 SAT 98%. SCHEDULED BREATHING TREATMENT ADMINISTERED. TOLERATED TX WELL, NO ADVERSE SIDE EFFECTS. NO RESPIRATORY DISTRESS NOTED AT THIS TIME. WILL CONTINUE TO MONITOR.
[2018-08-11] MEDS: LISINOPRIL 20 MG TAB PO SCH (08:49)
[2018-08-11] MEDS: LACTOBACILLUS RHAMNOSUS GG 1 EACH CAP PO SCH (08:49)
[2018-08-11] MEDS: FERROUS SULFATE 300 MG/5 ML UDC PO SCH (08:49)
[2018-08-11] MEDS: DOCUSATE SODIUM 100 MG GELCAP PO SCH (08:49)
[2018-08-11] MEDS: PANTOPRAZOLE 40 MG INJ VIAL IVP SCH (08:50)
[2018-08-11] MEDS: CARVEDILOL 12.5 MG TAB PO SCH ×2 (08:50→16:29)
[2018-08-11] MEDS: POTASSIUM CHLORIDE 20% 40 MEQ/15 ML UDC PO SCH (08:50)
[2018-08-11 09:34] LABS: ANION GAP 15.3 (8-16); CARBON DIOXIDE 23.3 mmol/L (21-32); CREATININE 0.8 mg/dL (0.6-1.3); POTASSIUM 3.6 mmol/L (3.5-5.1)
[2018-08-11] MEDS: MORPHINE SULFATE 4 MG/ML SYR IVP PRN (10:00)
--- NOTE | 2018-08-11 10:52 | NUR ---
DISCONTINUED WILSON CATHETER PER MD ORDER. NO SIGN OF DISTRESS NOTED. PT LYING ON HER BED. ALL SAFETY MEASURE IN PLACE. WILL CONTINUE TO MONITOR PT.
--- NOTE | 2018-08-11 11:18 | NUR ---
[id number] ON THE PT. APPEARS VERY CONFUSED. PT ADMINISTERED LORAZEPAM ORDERED. OFFERED WATER. TRIED TO PUT THE IV LINE OUT, PULL THE IV OUT. BED ALARM ON. COVERED WITH THE LINEN. PT STILL TRYING TO TAKE THE IV OUT. DR ROSEN NOTIFIED OF PT BEING MORE CONFUSED. MD TO SEE THE PT. COVERED THE IV SITE WITH KERLIX AGAIN. WILL CONTINUE TO MONITOR PT.
[2018-08-11] MEDS: FLUCONAZOLE 200 MG/NS PREMIX 100 ML IV SCH (12:32)
--- NOTE | 2018-08-11 12:39 | NUR ---
ADMINISTERED ABX ORDERED. PT WITH FEEDER. APPEARS CALM AT TIS TIME. NO DISTRESS NOTED. CALL LIGHT WITHIN PT REACH. WILL CONTINUE TO ASSESS RESTLESSNESS AND MONITOR PT.
[2018-08-11] MEDS: NACL 0.9% 1,000 ML IV SCH (15:57)
[2018-08-11] MEDS: ACETAMINOPHEN 325 MG TAB PO PRN (16:29)
--- NOTE | 2018-08-11 16:30 | NUR ---
CHECKED PT. TEMP NOTED 100.7. APPEARED RESTLESS, HAD SWEATING. ADMINISTERED TYLENOL TO PT, STARTED COLD COMPRESSION. RESIDENT AWARE, STATES TO MONITOR PT. WILL REASSESS PT TEMP IN HOUR. ALL SAFETY MEASURE IN PLACE. WILL CONTINUE TO MONITOR PT.
[2018-08-11] MEDS: LORazepam 2 MG/ML VIAL IVP PRN (17:26)
[2018-08-11] MEDS: INSULIN LISPRO SLIDING SCALE 100 UNITS/ML VIAL SUBQ PRN (17:33)
--- NOTE | 2018-08-11 17:37 | NUR ---
CHECKED ON PT. BS 164, ADMINISTERED 2 UNITS OF INSULIN. PT ADMINISTERED ATIVAN FOR AGITATION AND RESTLESSNESS. TOLERATED WELL. PT TEMP 98.5 AT THIS SHAUNA.E PT TRYING TO GET UP FROM THE BED. REINFORCED HER TO BE IN BED, HAS WEAK GAIT. PT IN BED. NO SIGN OF DISTRESS NOTED. WILL CLOSELY MONITOR PT.
--- NOTE | 2018-08-11 19:15 | NUR ---
ENDORSED PT TO PM NURSE AT BEDSIDE. PT SLEEPING AT THIS TIME. NO SIGN OF DISTRESS. PT STABLE.
--- NOTE | 2018-08-11 19:20 | NUR ---
RECEIVED PT IN STABLE CONDITION FROM AM NURSE. PT ON BEDREST. ASLEEP.BUT OPEN EYES WHEN NAME CALLED. ON TELE -SR. NO RESPIRATORY DISTRESS NOTED. WITH IVF INFUSING WELL ON THE RT FA#20, CLEAR AND PATENT. SCD BLE ON. BED ON LOWEST POSITION. FREQUENT ROUNDS NEEDED DUE TO CONFUSION. CALL LIGHT PLACED WITHIN EASY REACH. SIDE RAILS UP X2, PADDED FOR SEIZURE PRECAUTIONS. WILL CONTINUE TO MONITOR.
[2018-08-11] MEDS: TOPIRAMATE 25 MG TAB PO SCH (20:17)
--- NOTE | 2018-08-11 20:40 | NUR ---
PT AWAKE. STEWARD/STEWARDESS SMOKE ROOM STELLA ABLE TO FEED PT. TOLERATED WELL.
--- NOTE | 2018-08-11 21:00 | NUR ---
PT HAD SOME PUDDING WITH MEDICATION. TOLERATED WELL.
--- NOTE | 2018-08-11 21:13 | NUR ---
CALLED CT DEPT ,PT FOR CT HEAD WITHOUT CONTRAST. TALKED TO FINNHEAVY COIL WINDER AND HE SAID HE IS BUSY RIGHT NOW. WILL DO CT LATER. WILL STILL FOLLOW UP WITH THEM.
[2018-08-12] MEDS: ALBUTEROL SULFATE/IPRATROPIU 3 ML SOL IH SCH ×4 (00:47→19:34)
[2018-08-12 01:10] VITALS: BP 146/83
[2018-08-12] MEDS: LORazepam 2 MG/ML VIAL IVP PRN ×3 (01:21→15:17)
--- NOTE | 2018-08-12 01:21 | NUR ---
PT IS AGITATED. NEED TO HAVE CT HEAD WITHOUT CONTRAST DONE TONIGHT. GOT ORDER FOR ATIVAN 1MG IVP , GIVEN. WILL CONTINUE TO MONITOR.
--- NOTE | 2018-08-12 01:30 | NUR ---
PT INCONTINENT. VOIDED.AND HAD A VERY SCANTY STOOL. CLEANED AND KEPT DRY. REPOSITIONED FOR COMFORT.
--- NOTE | 2018-08-12 02:12 | NUR ---
HERMELINDO GORDON FROM CT DEPT. MADE AWARE THAT PT CAN HAVE THE CT HEAD ANYTIME NOW.
[2018-08-12 04:00] VITALS: BP 149/90
--- NOTE | 2018-08-12 04:00 | NUR ---
PT SLEEPING BUT EASILY AROUSE WHEN VITAL SIGNS TAKEN O2 SAT ONLY 90% ON ROOM AIR. BACK ON O2 2 L/NC . O2 SAT UP T0 93%. WILL CONTINUE TO MONITOR.
[2018-08-12] MEDS: MEROPENEM 1,000 MG in NACL 0.9% 100 ML IV SCH ×3 (04:36→20:24)
[2018-08-12] MEDS: BLOOD GLUCOSE MONITORING 1 DEV DEV FS SCH ×4 (05:30→20:23)
--- NOTE | 2018-08-12 05:40 | NUR ---
PT O2 SAT ON ROOM AIR 96%. PICKED UP BY BED BY DIRECTOR MEDICAL ECONOMICS EVAN FOR CT HEAD WITHOUT CONTRAST.
--- NOTE | 2018-08-12 06:15 | NUR ---
PT BACK FROM CT DEPT. UNABLE TO DO CT HEAD .PT STILL RESTLESS, UNABLE TO LAY DOWN FLAT IN BED. WILL HAVE MD MADE AWARE.
[2018-08-12] MEDS: DILTIAZEM 30 MG TAB PO SCH ×4 (06:27→23:36)
[2018-08-12] MEDS: VANCOMYCIN 500 MG in DEXTROSE 5% 100 ML IV SCH ×3 (06:28→22:41)
--- NOTE | 2018-08-12 06:40 | NUR ---
DR. HORNER,RESIDENT MD MADE AWARE ABOUT UNABLE TO DO CT HEAD FOR PT STILL CAN'T LIE STILL EVEN WITH THE ATIVAN GIVEN PRIOR TO TEST.
[2018-08-12 07:10] LABS: BASOPHILS # (AUTO) 0.1 K/uL (0.00-0.22); BASOPHILS % (AUTO) 0.5 % (0.0-2.0); EOSINOPHILS % (AUTO) 0.3 % (0.0-4.0); HEMOGLOBIN 9.2 g/dL (12.0-16.0); LYMPHOCYTES # (AUTO) 1.2 K/uL (2.5-16.5); LYMPHOCYTES % (AUTO) 8.7 % (20.5-51.1); MEAN CORPUSCULAR HEMOGLOBIN 29 pg (27-31); MEAN CORPUSCULAR HGB CONC 33 g/dL (33-37); MEAN CORPUSCULAR VOLUME 88.9 fL (80-94); MONOCYTES # (AUTO) 1.2 K/uL (0.8-1.0); MONOCYTES % (AUTO) 8.3 % (1.7-9.3); NEUTROPHILS # (AUTO) 11.5 K/uL (1.8-7.7); NEUTROPHILS % (AUTO) 82.2 % (42.2-75.2); PLATELET COUNT (AUTO) 540 K/uL (140-450); RED BLOOD CELL COUNT(AUTO) 3.14 MIL/uL (4.20-5.40); RED CELL DISTRIBUTION WIDTH 14.1 % (11.6-13.7)
--- NOTE | 2018-08-12 07:25 | NUR ---
PT REPORT RECEIVED FROM RELIGION PROFESSOR NURSE. PT IS ASLEEP, AND IS TECHYPNEIC (22 BREATHS/MIN). PT IS ON 2 L O2 NC. SKIN IS INTACT. IV SITE NOTED ON THE R FA, 20 G, INFUSING NS 50 ML/HR. FALL PRECAUTIONS IN PLACE. CALL LIGHT WITHIN REACH. WILL CONTINUE TO MONITOR PT.
--- NOTE | 2018-08-12 07:31 | NUR ---
ENDORSED PT IN STABLE CONDITION TO AM NURSE.
[2018-08-12 08:00] VITALS: BP 153/87
[2018-08-12 08:09] LABS: ANION GAP 13.8 (8-16); CARBON DIOXIDE 22.9 mmol/L (21-32); POTASSIUM 3.7 mmol/L (3.5-5.1)
[2018-08-12 08:10] LABS: CREATININE 0.8 mg/dL (0.6-1.3)
--- NOTE | 2018-08-12 08:20 | NUR ---
PT'S TEMP IS 100.2 AT THIS TIME. COOLING MEASURES IN PLACE. WILL CONTINUE TO MONITOR PT.
[2018-08-12] MEDS: DOCUSATE SODIUM 100 MG GELCAP PO SCH (09:54)
[2018-08-12] MEDS: POTASSIUM CHLORIDE 20% 40 MEQ/15 ML UDC PO SCH (09:54)
[2018-08-12] MEDS: FERROUS SULFATE 300 MG/5 ML UDC PO SCH (09:55)
[2018-08-12] MEDS: LISINOPRIL 20 MG TAB PO SCH (09:55)
[2018-08-12] MEDS: CARVEDILOL 12.5 MG TAB PO SCH ×2 (09:55→17:31)
[2018-08-12] MEDS: LACTOBACILLUS RHAMNOSUS GG 1 EACH CAP PO SCH (09:55)
[2018-08-12] MEDS: PANTOPRAZOLE 40 MG INJ VIAL IVP SCH (09:56)
[2018-08-12] MEDS: ACETAMINOPHEN 325 MG TAB PO PRN (10:03)
[2018-08-12] MEDS ORDERED: VANCOMYCIN PER PHARMACY MC PRN (10:35)
[2018-08-12 12:00] VITALS: BP 104/75
[2018-08-12] MEDS: NACL 0.9% 1,000 ML IV SCH (12:26)
--- NOTE | 2018-08-12 13:25 | NUR ---
Called [facility] radiology dept and informed them if we can send a pt for MRI brain with contrast. They cannot accept the pt cause [facility] is not contracted with them. Addendum: 08/12/18 at 1404 by Susan Bunch CM Pls disregard above noted.
--- NOTE | 2018-08-12 13:30 | NUR ---
CALLED [facility] TO REQUEST MRI QUESTIONNAIRE INFORMATION FOR PT'S MRI ON WEDNESDAY. NO ONE AT THE FACILITY WAS AVAILABLE TO PROVIDE THE NECESSARY MEDICAL INFORMATION. I GAVE [facility] PHONE NUMBER TO THE DISTRIBUTION ASSOCIATE AT [facility], AND TOLD HER TO CALL ME WHEN SOMEONE WHO KNOWS THIS PT'S MEDICAL HISTORY IS AVAILABLE.
--- NOTE | 2018-08-12 14:04 | NUR ---
Called [facility] radiology Dept ext [phone] and spoke with Tyesha. The earliest they can do the MRI for the pt is next week. Pt will have the MRI done in [facility] on wednesday08/15/18.
--- NOTE | 2018-08-12 14:12 | NUR ---
CM NOTE PER ALIA OF RADIOLOGY PH# [phone], NO AVAILABLE SHRIMP PEELER TODAY AT [facility] AND NO AVAILABLE SHRIMP PEELER IN [facility] THE REST OF TODAY. SHE ALSO SAID THAT NO SHRIMP PEELER AVAILABLE IN [facility] AND [facility] OVER THIS WEEKEND. PER ALIA, THE MRI CAN BE DONE AT [facility] ON AUGUST 15, 2018. DR. JESSIKA DUVALL.
--- NOTE | 2018-08-12 14:46 | NUR ---
Talked with Elvia Matos RN MRI Medical History Form not filled out because of pt's mental capacity and has no family member. Spoke with Nasrin [facility] Radiology Dept and informed her that the MRI form is not filled out yet due to pt's mental capacity. No appointment for MRI yet scheduled for the pt. Nasrin from [facility] can be called in her cell number for the weekend.
--- NOTE | 2018-08-12 15:09 | NUR ---
Notified Dr. Lowery and Dr. Espana that appointment cannot be made yet since the MRI Medical History Form is not filled out due to patient's mental capacity. If there is any change of mental condition for the pt. over the weekend, call Nasrin [facility] cell number .
--- NOTE | 2018-08-12 15:16 | NUR ---
PT CLEANED, LINENS CHANGED, AND REPOSITIONED. PT IS AGITATED AND CONFUSED.
--- NOTE | 2018-08-12 15:43 | NUR ---
08/12/18 RD FOLLOW UP COMPLETED PLEASE REFER TO NUTRITION ASSESSMENT UNDER CARE ACTIVITY FOR ESTIMATED NUTRITIONAL NEEDS. 1. CONTINUE CARDIAC PUREE DIET WITH NECTAR THICK LIQUIDS TOLERATED 2. RECOMMEND PROSOURCE TID 3. ENCOURAGE PO INTAKE 4. RD TO FOLLOW-UP 2-3 DAYS, HIGH RISK EDMOND MORENO, ANGELIA
[2018-08-12 16:00] VITALS: BP 136/86
--- NOTE | 2018-08-12 18:30 | NUR ---
PT SLEEPING, CONTINUES TO BE TACHYPNEIC. IV FLUIDS INFUSING WELL. CALL LIGHT WITHIN REACH. WILL CONTINUE TO MONITOR.
--- NOTE | 2018-08-12 19:15 | NUR ---
ENDORSED PT TO JEWELRY CUTTER. PT IS IN STABLE CONDITION.
--- NOTE | 2018-08-12 19:20 | NUR ---
RECEIVED PT FROM SENTHIL RN PT AOX1 ON TACHYPNEA RESP THERAPY AT BED SIDE ON 3 LTS EDVIN NC SAT 95% IV ON RT FA INFUSING WELL ON TELEMETRY ST, REPOSITIONED INITIAL ASSESSMENT DONE
[2018-08-12 20:00] VITALS: BP 145/96
[2018-08-12] MEDS: TOPIRAMATE 25 MG TAB PO SCH (20:23)
--- NOTE | 2018-08-12 21:00 | NUR ---
BLOOD SUGAR TEST 127 NOT COVERAGE
--- NOTE | 2018-08-12 22:43 | NUR ---
PT REPOSITIONED Q2H NOT DISTRESS NOTED ON TELMETRY ST IV INFUSING WELL ON RT FA PT COOPERATIVE TO FOLLOW DR ORDERS.
[2018-08-13] VITALS (7 sets, daily range): BP systolic 127–156; BP diastolic 66–96
--- NOTE | 2018-08-13 00:07 | NUR ---
DUE MEDICATION ADMINISTERED, PT TOLERATED WELL, V/S TAKEN, PT TACHYPNEIC RR 30, HR 105, NO FACIAL GRIMACING NOTED, PT DOES NOT WANT TO OPEN EYES TO VOICE, ONLY TO TOUCH THEN WENT BACK TO SLEEP, CALL LIGHT WITHIN REACH, WILL CONTINUE TO MONITOR. Addendum: 08/14/18 at 0424 by Avelina Clark RN WRONG DATE
--- NOTE | 2018-08-13 00:12 | NUR ---
PT AWAKE FOLLOW COMMANDS TACHYPNEA ON TELEMETRY SR, LINEN CHANGED , REPOSITIONED Q2H IV ON RT FA INFUSING WELL
[2018-08-13] MEDS: ALBUTEROL SULFATE/IPRATROPIU 3 ML SOL IH SCH ×4 (01:31→19:37)
--- NOTE | 2018-08-13 01:47 | NUR ---
PT SLEEPING RESP THERAPY AT BED SIDE GIVEN BREATHING TX, REPOSITIONED LINEN CHANGED PT INCONTINENT ON TELEMETRY ST
--- NOTE | 2018-08-13 04:00 | NUR ---
PT HAS BEEN MONITORING CLOSE SPONGE BATH GIVEN LINEN CHANGED REPOSITIONED PT AWAKE, CONFUSED ON TELMETRY SR
[2018-08-13] MEDS: NACL 0.9% 1,000 ML IV SCH (04:10)
[2018-08-13] MEDS: MEROPENEM 1,000 MG in NACL 0.9% 100 ML IV SCH ×3 (04:14→21:14)
[2018-08-13] MEDS: DILTIAZEM 30 MG TAB PO SCH ×4 (05:43→18:00)
[2018-08-13] MEDS: BLOOD GLUCOSE MONITORING 1 DEV DEV FS SCH ×4 (06:18→21:38)
[2018-08-13] MEDS: VANCOMYCIN 500 MG in DEXTROSE 5% 100 ML IV SCH ×3 (06:20→22:19)
--- NOTE | 2018-08-13 06:25 | NUR ---
BLOOD SUGAR TEST 93 NOT COVERAGE ON TELE SR ,PT CONFUSED
--- NOTE | 2018-08-13 06:32 | NUR ---
PT WILL BE ENDORSED TO DAY SHIFT NURSE FOR CONTINUITY OF CARE
--- NOTE | 2018-08-13 07:15 | NUR ---
PT IS ENDORSED TO ALBA REYES FOR CONTINUITY OF CARE PT STERTED TO BE AGITATED
--- NOTE | 2018-08-13 07:25 | NUR ---
RECEIVED BEDSIDE REPORT FROM [employer] ARCHITECT NURSE. PT IS AAOX1. PT IS RESTLESS AND CONFUSED. MOVING AROUND IN BED WHILE VITALS BEING TAKEN. STATES SHE NEEDS TO BE HELPED TO THE BATHROOM TO URINATE. OFFERED BEDPAN BUT PT DOES NOT SEEM TO COMPREHEND. PER [employer] ARCHIT[employer] RN, PT IS INCONTINENT. ASSURED PT THAT SHE WILL BE CLEANED WHENEVER SHE URINATES. PT CONTINUES TO BE RESTLESS. BP 156/95 AND HR 109 MAY BE DUE TO AGITATION. WILL ADMIN ATIVAN. PT SKIN IS INTACT. NO C/O PAIN AT THIS TIME. BED IS LOCKED, LOW POSITION, WITH SIDE RAILS UP X2. BOARD UPDATED. CALL LIGHT WITHIN REACH. WILL CONTINUE TO MONITOR PT.
[2018-08-13 07:32] LABS: BASOPHILS # (AUTO) 0.1 K/uL (0.00-0.22); BASOPHILS % (AUTO) 0.6 % (0.0-2.0); EOSINOPHILS % (AUTO) 0.3 % (0.0-4.0); HEMATOCRIT 28.9 % (36-48); HEMOGLOBIN 9.4 g/dL (12.0-16.0); LYMPHOCYTES # (AUTO) 1.1 K/uL (2.5-16.5); LYMPHOCYTES % (AUTO) 8.4 % (20.5-51.1); MEAN CORPUSCULAR HEMOGLOBIN 29 pg (27-31); MEAN CORPUSCULAR HGB CONC 32 g/dL (33-37); MEAN CORPUSCULAR VOLUME 89.5 fL (80-94); MONOCYTES # (AUTO) 1.2 K/uL (0.8-1.0); NEUTROPHILS # (AUTO) 10.8 K/uL (1.8-7.7); NEUTROPHILS % (AUTO) 81.7 % (42.2-75.2); PLATELET COUNT (AUTO) 533 K/uL (140-450); RED BLOOD CELL COUNT(AUTO) 3.23 MIL/uL (4.20-5.40); RED CELL DISTRIBUTION WIDTH 14.6 % (11.6-13.7); WHITE BLOOD COUNT (AUTO) 13.3 K/uL (4.8-10.8)
--- NOTE | 2018-08-13 08:12 | NUR ---
PT IS NOW ASLEEP IN BED, AROUSABLE BY VOICE.
[2018-08-13 08:27] LABS: CARBON DIOXIDE 26.7 mmol/L (21-32); CREATININE 0.8 mg/dL (0.6-1.3); POTASSIUM 3.7 mmol/L (3.5-5.1)
[2018-08-13 08:36] LABS: MAGNESIUM 1.7 mg/dL (1.8-2.4); PHOSPHORUS 2.9 mg/dL (2.5-4.9)
[2018-08-13] MEDS: DOCUSATE SODIUM 100 MG GELCAP PO SCH (09:14)
[2018-08-13] MEDS: LISINOPRIL 20 MG TAB PO SCH (09:15)
[2018-08-13] MEDS: CARVEDILOL 12.5 MG TAB PO SCH ×3 (09:15→17:38)
[2018-08-13] MEDS: FERROUS SULFATE 300 MG/5 ML UDC PO SCH (09:16)
[2018-08-13] MEDS: PANTOPRAZOLE 40 MG INJ VIAL IVP SCH (09:16)
[2018-08-13] MEDS: POTASSIUM CHLORIDE 20% 40 MEQ/15 ML UDC PO SCH (09:16)
[2018-08-13] MEDS: LACTOBACILLUS RHAMNOSUS GG 1 EACH CAP PO SCH (09:16)
[2018-08-13] MEDS: LORazepam 2 MG/ML VIAL IVP PRN (11:41)
--- NOTE | 2018-08-13 11:41 | NUR ---
ADMINISTERED ATIVAN IVP, PT IS RESTING AND TRYING TO GET OUT OF BED.
--- NOTE | 2018-08-13 11:46 | NUR ---
PT HR GOING UP TO 150S. PT IS RESTLESS, MOVING ABOUT IN BED, TRYING TO GET OUT OF BED. ALL OTHER VITALS STABLE. PT IS CONFUSED BUT ALERT. IS ASKING FOR A "TOY". ALL SAFETY PRECAUTIONS IN PLACE, WILL MONITOR CLOSELY.
--- NOTE | 2018-08-13 12:06 | NUR ---
NOTIFIED DR. ESPINAL THAT PT HAD ONE EPISODE SVT ON TELE. MADE AWARE THAT PT WAS ADMINISTERED PO CARDIZEM AND ATIVAN IVP. NOW PT IS SINUS TACH 130S. NO NEW ORDERS RECEIVED. WILL CONTINUE TO MONITOR AND NOTIFY IF SVT SEEN ON TELE AGAIN.
[2018-08-13] MEDS: INSULIN LISPRO SLIDING SCALE 100 UNITS/ML VIAL SUBQ PRN (12:40)
--- NOTE | 2018-08-13 12:40 | NUR ---
PT RESTING CALMLY IN BED, ONE HOUR AFTER ATIVAN IVP.
[2018-08-13] MEDS ORDERED: VANCOMYCIN PER PHARMACY MC PRN (15:00)
[2018-08-13] MEDS: ACETAMINOPHEN 325 MG TAB PO PRN (17:41)
--- NOTE | 2018-08-13 17:50 | NUR ---
PT OPENS EYES TO TOUCH BUT IS LETHARGIC AND CLOSES EYES ALMOST IMMEDIATELY AFTER OPENING. NOT ALERT ENOUGH TO TAKE ORAL MEDICATIONS. WILL ATTEMPT TO ADMINISTER MEDICATIONS AGAIN LATER. PT'S ORAL TEMP IS 101.0F. SKIN IS APPROPRIATELY WARM TO TOUCH- DOES NOT FEEL LIKE ELEVATED TEMP. RECHECKED WITH AUXILIARY WITH 98.9 F RESULT. WILL NOT ADMINISTER TYLENOL, WILL CONTINUE TO MONITOR INSTEAD.
--- NOTE | 2018-08-13 18:17 | NUR ---
PT CONTINUES TO BE LETHARGIC. OPENS EYES TO TOUCH BUT CANNOT KEEP EYES OPEN FOR LONG. UNABLE TO SAFELY SWALLOW ORAL MEDS AT THIS TIME. NOTIFIED DOCTOR. VITALS STABLE. HR 106.
--- NOTE | 2018-08-13 19:15 | NUR ---
ENDORSED POC TO CHANNEL MARKETING MANAGER RN. PT IN STABLE CONDITION.
--- NOTE | 2018-08-13 19:16 | NUR ---
RECEIVED BEDSIDE REPORT FROM DAY SHIFT NURSE ALBA RN, PT STABLE, NO DISTRESS NOTED, IV TO L FA 24G PATENT, INTACT, INFUSING NS @ 50ML/HR, PT ON 3LPM O2 VIA NC, TACHYPNEIC NOTED, BUT PT IS LETHARGIC, KEEPS FALLING ASLEEP, NO SOB NOTED, INITIAL ASSESSMENT DONE, ALL SAFETY PRECAUTION MET,CALL LIGHT WITHIN REACH, WILL CONTINUE TO MONITOR. Addendum: 08/14/18 at 0420 by Avelina Clark RN SOFT WRIST RESTRAINTS IN PLACE, PT PULLS OFF OXYGEN AND HEART MONITOR.
[2018-08-13] MEDS: TOPIRAMATE 25 MG TAB PO SCH (21:13)
[2018-08-13] MEDS: MAGNESIUM OXIDE 400 MG TAB PO SCH (21:13)
--- NOTE | 2018-08-13 21:38 | NUR ---
DUE MEDICATION ADMINISTERED, PT TOLERATED WELL, NO DISTRESS NOTED, CALL LIGHT WITHIN REACH, WILL CONTINUE TO MONITOR.
--- NOTE | 2018-08-13 22:19 | NUR ---
DUE MEDICATION ADMINISTERED, PT TOLERATED WELL, NO DISTRESS NOTED, CALL LIGHT WITHIN REACH, WILL CONTINUE TO MONITOR.
--- NOTE | 2018-08-14 00:03 | NUR ---
DUE MEDICATION ADMINISTERED, PT TOLERATED WELL, V/S TAKEN, PT TACHYPNEIC RR 30, HR 105, NO FACIAL GRIMACING NOTED, PT DOES NOT WANT TO OPEN EYES TO VOICE, ONLY TO TOUCH THEN WENT BACK TO SLEEP, CALL LIGHT WITHIN REACH, WILL CONTINUE TO MONITOR.
[2018-08-14] MEDS: DILTIAZEM 30 MG TAB PO SCH ×4 (00:07→17:10)
[2018-08-14] MEDS: ALBUTEROL SULFATE/IPRATROPIU 3 ML SOL IH SCH ×3 (02:00→13:31)
[2018-08-14 03:52] VITALS: BP 122/73
[2018-08-14] MEDS: MORPHINE SULFATE 4 MG/ML SYR IVP PRN ×2 (03:52→12:18)
--- NOTE | 2018-08-14 03:52 | NUR ---
CHECKED ON PT, PT TACHYPNEIC, RR 40, HR 110 PT AWAKE, INCOMPREHENSIBLE MURMURING, PT ALSO HAS BEEN PULLING HYDROMETER TESTER. MORPHINE PER MD ORDER GIVEN, NO DISTRESS NOTED, CALL LIGHT WITHIN REACH, WILL CONTINUE TO MONITOR.
[2018-08-14] MEDS: MEROPENEM 1,000 MG in NACL 0.9% 100 ML IV SCH ×2 (04:49→12:17)
[2018-08-14] MEDS: NACL 0.9% 1,000 ML IV SCH (04:49)
[2018-08-14] MEDS: VANCOMYCIN 500 MG in DEXTROSE 5% 100 ML IV SCH (06:04)
--- NOTE | 2018-08-14 06:04 | NUR ---
DUE MEDICATION ADMINISTERED, PT TOLERATED WELL, NO DISTRESS NOTED, CALL LIGHT WITHIN REACH, WILL CONTINUE TO MONITOR.
[2018-08-14] MEDS: BLOOD GLUCOSE MONITORING 1 DEV DEV FS SCH ×3 (06:29→16:19)
[2018-08-14 06:46] LABS: BASOPHILS # (AUTO) 0.1 K/uL (0.00-0.22); BASOPHILS % (AUTO) 0.6 % (0.0-2.0); EOSINOPHILS # (AUTO) 0.1 K/uL (0-0.4); EOSINOPHILS % (AUTO) 0.9 % (0.0-4.0); HEMATOCRIT 25.6 % (36-48); HEMOGLOBIN 8.3 g/dL (12.0-16.0); LYMPHOCYTES # (AUTO) 1.3 K/uL (2.5-16.5); LYMPHOCYTES % (AUTO) 10.8 % (20.5-51.1); MEAN CORPUSCULAR HEMOGLOBIN 29 pg (27-31); MEAN CORPUSCULAR HGB CONC 32 g/dL (33-37); MEAN CORPUSCULAR VOLUME 89.7 fL (80-94); MONOCYTES # (AUTO) 1.1 K/uL (0.8-1.0); MONOCYTES % (AUTO) 9.6 % (1.7-9.3); NEUTROPHILS # (AUTO) 9.2 K/uL (1.8-7.7); NEUTROPHILS % (AUTO) 78.1 % (42.2-75.2); PLATELET COUNT (AUTO) 461 K/uL (140-450); RED BLOOD CELL COUNT(AUTO) 2.85 MIL/uL (4.20-5.40); RED CELL DISTRIBUTION WIDTH 14.4 % (11.6-13.7); WHITE BLOOD COUNT (AUTO) 11.8 K/uL (4.8-10.8)
--- NOTE | 2018-08-14 07:19 | NUR ---
ENDORSED PT TO DAY SHIFT NURSE ALBA RN, PT STABLE, NO DISTRESS NOTED, CALL LIGHT WITHIN REACH.
[2018-08-14 07:20] LABS: ANION GAP 9.7 (8-16); CARBON DIOXIDE 27.9 mmol/L (21-32); POTASSIUM 3.6 mmol/L (3.5-5.1)
--- NOTE | 2018-08-14 07:23 | NUR ---
RECEIVED BEDSIDE REPORT FROM FISH AND GAME CLUB MANAGER RN. PT SLEEPING IN BED, DROWSY, BUT AROUSABLE BY VOICE. PT IS CONFUSED. NO S/S DISTRESS. TACHYPNEIC AT 31 BREATHS/MIN. HR 100. BP STABLE. IV SITE PATENT AND ASYMPTOMATIC, INFUSING IVF PER MD ORDERS. ASPIRATION AND SEIZURE PRECAUTIONS IN PLACE. ALL OTHER SAFETY PRECAUTIONS IN PLACE, WILL CONTINUE TO MONITOR.
[2018-08-14 07:29] LABS: MAGNESIUM 1.8 mg/dL (1.8-2.4); PHOSPHORUS 3.6 mg/dL (2.5-4.9)
[2018-08-14 08:00] VITALS: BP 127/83
[2018-08-14] MEDS: POTASSIUM CHLORIDE 20% 40 MEQ/15 ML UDC PO SCH (09:07)
[2018-08-14] MEDS: FERROUS SULFATE 300 MG/5 ML UDC PO SCH (09:07)
[2018-08-14] MEDS: DOCUSATE SODIUM 100 MG GELCAP PO SCH (09:07)
[2018-08-14] MEDS: CARVEDILOL 12.5 MG TAB PO SCH ×2 (09:08→17:10)
[2018-08-14] MEDS: LISINOPRIL 20 MG TAB PO SCH (09:08)
[2018-08-14] MEDS: LACTOBACILLUS RHAMNOSUS GG 1 EACH CAP PO SCH (09:14)
[2018-08-14] MEDS: PANTOPRAZOLE 40 MG INJ VIAL IVP SCH (09:14)
[2018-08-14] MEDS: MAGNESIUM OXIDE 400 MG TAB PO SCH (09:19)
--- NOTE | 2018-08-14 10:41 | NUR ---
PT IS ALERT NOW, NO LONGER DROWSY. RR NOW IS 24. PT ASKING FOR CIGARETTE.
[2018-08-14 12:00] VITALS: BP 125/76
--- NOTE | 2018-08-14 13:31 | NUR ---
FOUND PT ON 4L NC SPO2 87%. BREATHING TX ADMINISTERED.
--- NOTE | 2018-08-14 13:38 | NUR ---
PER [facility] MRI DEPARTMENT, PATIENT MUST BE ABLE TO FILL OUT MRI QUESTIONNAIRE HERSELF OR HAVE FAMILY MEMBER FILL IT OUT. [facility] STAFF/PATIENT'S DOCTOR IS NOT ALLOWED TO FILL OUT THE MRI QUESTIONNAIRE.
--- NOTE | 2018-08-14 13:46 | NUR ---
POST BREATHING TX PT RETURNED TO 4L NC SPO2 REMAINS 88%. LITER FLOW INCREASED TO 6LPM SPO2 NOW 92%. PT NOT IN ANY DISTRESS AT THIS TIME.
--- NOTE | 2018-08-14 13:50 | NUR ---
CALLED PERSON TO NOTIFY SEEMA [phone] IN REGARDS TO MRI QUESTIONNAIRE WHICH PT IS NOT ABLE TO FILL OUT FOR HERSELF. SEEMA WILL CHECK WITH HER VARIOUS EXCEPTIONALITIES TEACHER AND CALL ME BACK.
--- NOTE | 2018-08-14 15:08 | NUR ---
PER [facility], PERSON TO NOTIFY SEEMA RAMOS IS ON WAY TO [facility]. WILL HAVE SEEMA RAMOS COMPLETE MRI QUESTIONNAIRE.
--- NOTE | 2018-08-14 15:43 | NUR ---
SEEMA HERE TO SEE PATIENT AND FILL OUT MRI QUESTIONNAIRE.
[2018-08-14 16:00] VITALS: BP 126/76
--- NOTE | 2018-08-14 18:50 | NUR ---
TERRITORY MANAGER GENERAL SALES NOTIFIED AND SPOKEN TO RACHEL STEPHENSON REGARDING PATIENT CONDITION AND IS BEING CODED.. STATED TO LET HER KNOW WHAT IS GOING ON WITH THE PATIENT.
--- NOTE | 2018-08-14 19:04 | NUR ---
NOTIFIED ARABELLA RAMOS (CAREGIVER) REGARDING PATIENT TIME OF .
--- NOTE | 2018-08-14 20:00 | NUR ---
[facility] CALLED TO SAY THEY WILL NOT BE PURSUING ORGAN DONATION.
--- NOTE | 2018-08-14 20:35 | NUR ---
[employer] CALLED BACK. SPOKE WITH NINFA SIMPSON. BODY WAS RELEASED AT 20:35. RELEASE NUMBER [phone] RELEASE NUMBER REPEATED BACK TO NINFA AND SHE CONFIRMED IT WAS CORRECT.
--- NOTE | 2018-08-14 21:15 | NUR ---
CALLED [employer], NO ONE ANSWERED. CALLED AGAIN AND LEFT NANCYAG
--- NOTE | 2018-08-14 23:05 | NUR ---
SPOKEN TO KAROLINE AT THE SCHEDULE HANGER PLACE, EXPLAINED TO HER THAT WE CAN NOT KEEP THE PATIENT HERE FOR UNTIL TOMORROW. ALSO WAS TOLD THAT THERE IS A MORTUARY THAT WHERE SEND OUR PATIENT WHEN THE FAMILY CAN NOT DECIDE FOR THE TIME BEING, SHE SAID THAT SHE CAN NOT SAY BUT DO WHAT YOU HAVE TO DO. [facility] WAS CALLED AND WILL SCRAP BURNER THE BODY IN ABOUT 3 HOURS.
--- NOTE | 2018-08-14 23:10 | NUR ---
ARJUN MONTALVO CALLED FACILITY AND THEY AGREED TO SEND BODY TO [facility]. ARJUN MONTALVO CALLED MORTUARY AND THEY SAID THEY CAN PICK HER UP IN 3HRS. Addendum: 08/15/18 at 0058 by Gisel Villalta RN DISREGARD.
--- NOTE | 2018-08-15 01:55 | NUR ---
PT WAS PICKED UP AND TAKEN TO [facility]. PT WAS WEARING BRACELET TO RIGHT WRIST AND TWO RINGS ON FINGERS.
== END 2018-08-14 18:56 | disposition expired | DRG 720 ==
LOC: MED 10:20 → MIC 12:38 → MTU 08-09 19:56
PROVIDERS: ADMIT General Practice; ATTEND General Practice
PROC: 5A1955Z Respiratory Ventilation, Greater than 96 Consecutive Hours (ICD-10-PCS; principal; 2018-08-01)
PROC: 02HV33Z Insertion of Infusion Device into Superior Vena Cava, Percutaneous Approach (ICD-10-PCS; 2018-08-01)
PROC: B548ZZA Ultrasonography of Superior Vena Cava, Guidance (ICD-10-PCS; 2018-08-01)
PROC: 0BH17EZ Insertion of Endotracheal Airway into Trachea, Via Natural or Artificial Opening (ICD-10-PCS; 2018-08-01)
PROC: 00JU3ZZ Inspection of Spinal Canal, Percutaneous Approach (ICD-10-PCS; 2018-08-02)
PROC: 00JU3ZZ Inspection of Spinal Canal, Percutaneous Approach (ICD-10-PCS; 2018-08-04)
PROC: 30233N1 Transfusion of Nonautologous Red Blood Cells into Peripheral Vein, Percutaneous Approach (ICD-10-PCS; 2018-08-09)
DX: A40.3 Sepsis due to Streptococcus pneumoniae (principal); N17.0 Acute kidney failure with tubular necrosis; J96.01 Acute respiratory failure with hypoxia; J69.0 Pneumonitis due to inhalation of food and vomit; G00.1 Pneumococcal meningitis; R65.21 Severe sepsis with septic shock; I47.2 Ventricular tachycardia; E83.39 Other disorders of phosphorus metabolism; I07.1 Rheumatic tricuspid insufficiency; R13.10 Dysphagia, unspecified; I46.9 Cardiac arrest, cause unspecified; Z99.11 Dependence on respirator [ventilator] status; E44.0 Moderate protein-calorie malnutrition; E87.3 Alkalosis; N39.0 Urinary tract infection, site not specified; E87.6 Hypokalemia; I10 Essential (primary) hypertension; B96.20 Unspecified Escherichia coli [E. coli] as the cause of diseases classified elsewhere; F41.9 Anxiety disorder, unspecified; J45.909 Unspecified asthma, uncomplicated; K80.20 Calculus of gallbladder without cholecystitis without obstruction; Y95 Nosocomial condition; Z79.899 Other long term (current) drug therapy; E86.0 Dehydration; F17.210 Nicotine dependence, cigarettes, uncomplicated; E05.80 Other thyrotoxicosis without thyrotoxic crisis or storm; D50.9 Iron deficiency anemia, unspecified; I49.1 Atrial premature depolarization; I49.3 Ventricular premature depolarization; I42.7 Cardiomyopathy due to drug and external agent; M16.0 Bilateral primary osteoarthritis of hip; J98.11 Atelectasis; I67.4 Hypertensive encephalopathy; E83.42 Hypomagnesemia; I27.21 Secondary pulmonary arterial hypertension; Z71.3 Dietary counseling and surveillance; G40.909 Epilepsy, unspecified, not intractable, without status epilepticus; D47.3 Essential (hemorrhagic) thrombocythemia; R31.9 Hematuria, unspecified; Z68.24 Body mass index [BMI] 24.0-24.9, adult; E87.0 Hyperosmolality and hypernatremia
CPT/HCPCS: 36415; 36600; 51702; 70450; 71045; 71275; 76705; 77003; 77012; 80048; 80053; 80170; 80202; 80305; 81001; 81003; 81025; 82140; 82150; 82272; 82550; 82607; 82728; 82746; 82803; 82948; 83036; 83540; 83605; 83690; 83735; 83880; 84100; 84436; 84443; 84484; 84550; 85025; 85045; 85379; 85610; 85730; 86704; 86706; 86708; 86709; 86803; 86886; 86900; 86901; 86920; 87040; 87070; 87081; 87086; 87186; 87205; 87340; 87529; 87804; 89220; 92610; 93005; 93970; 94003; 94640; 96365; 96372; 96375; 96376; 97110; 97530; 99291; C1758; C9113; G0480; G0482; J0360; J0696; J1100; J1170; J1200; J1450; J1580; J1630; J1642; J1644; J1815; J1885; J1956; J2001; J2060; J2185; J2270; J2543; J2704; J2916; J3010; J3370; J3475; J3480; J3490; J7030; J7042; J7060; J7620; P9016; Q0092; Q0163; Q9967